=== PATIENT | male | born 1945 | race Caucasian/White ===

== ENCOUNTER → 2016-08-21 | Outpatient (REF) | payer MEDICARE ==
[2016-08-21 12:09] LABS: MEAN CORPUSCULAR HEMOGLOBIN 30.4 pg (27.0-33.0); MEAN CORPUSCULAR HGB CONC 34.5 g/dl (32.0-36.5); MEAN CORPUSCULAR VOLUME 88.1 fl (80.0-96.0); RED CELL DISTRIBUTION WIDTH 12.6 % (11.5-14.5); WHITE BLOOD COUNT 8.4 K/mm3 (4.0-10.0)
[2016-08-21 12:35] LABS: ALBUMIN 3.9 GM/DL (3.2-5.2); ALKALINE PHOSPHATASE 50 U/L (45-117); ALT/SGPT 28 U/L (12-78); ANION GAP 9 MEQ/L (8-16); AST/SGOT 21 U/L (15-37); BILIRUBIN,TOTAL 0.4 MG/DL (0.2-1.0); BLOOD UREA NITROGEN 20 MG/DL (7-18); CALCIUM LEVEL 9.1 MG/DL (8.8-10.2); CARBON DIOXIDE LEVEL 26 MEQ/L (21-32); CHLORIDE LEVEL 105 MEQ/L (98-107); CHOLESTEROL LEVEL 128 MG/DL (<200); CREATININE FOR GFR 1.18 MG/DL (0.70-1.30); GLOMERULAR FILTRATION RATE > 60.0 (>42); GLUCOSE, FASTING 94 MG/DL (83-110); POTASSIUM SERUM 3.9 MEQ/L (3.5-5.1); SODIUM LEVEL 140 MEQ/L (136-145); TOTAL PROTEIN 6.9 GM/DL (6.4-8.2); TRIGLYCERIDES LEVEL 190 MG/DL (<150)
== END ==
LOC: M SFHCPLAZ 08:01
PROVIDERS: ATTEND Internal Medicine
DX: Z86.010 Personal history of colon polyps (principal); E11.9 Type 2 diabetes mellitus without complications; I25.10 Atherosclerotic heart disease of native coronary artery without angina pectoris; I73.9 Peripheral vascular disease, unspecified

== ENCOUNTER → 2017-02-26 | Outpatient (REF) | payer MEDICARE ==
[2017-02-26 12:03] LABS: ESTIMATED AVERAGE GLUCOSE 192 MG/DL (60-110)
[2017-02-26 12:05] LABS: ALBUMIN 3.7 GM/DL (3.2-5.2); ALBUMIN/GLOBULIN RATIO 1.23 (1.00-1.93); ALKALINE PHOSPHATASE 53 U/L (45-117); ALT/SGPT 20 U/L (12-78); ANION GAP 9 MEQ/L (8-16); AST/SGOT 14 U/L (7-37); BILIRUBIN,TOTAL 0.4 MG/DL (0.2-1.0); BLOOD UREA NITROGEN 21 MG/DL (7-18); CALCIUM LEVEL 8.6 MG/DL (8.8-10.2); CARBON DIOXIDE LEVEL 28 MEQ/L (21-32); CHLORIDE LEVEL 102 MEQ/L (98-107); CHOLESTEROL LEVEL 131 MG/DL (<200); CREATININE FOR GFR 1.24 MG/DL (0.70-1.30); GLOMERULAR FILTRATION RATE > 60.0 (>42); GLUCOSE, FASTING 213 MG/DL (83-110); MAGNESIUM LEVEL 2.2 MG/DL (1.8-2.4); SODIUM LEVEL 139 MEQ/L (136-145); TOTAL PROTEIN 6.7 GM/DL (6.4-8.2); TRIGLYCERIDES LEVEL 259 MG/DL (<150)
== END ==
LOC: M SFHCPLAZ 08:02
DX: E11.9 Type 2 diabetes mellitus without complications (principal); I25.10 Atherosclerotic heart disease of native coronary artery without angina pectoris; I10 Essential (primary) hypertension
CPT/HCPCS: 83735

== ENCOUNTER → 2017-09-20 | Outpatient (REF) | payer BC, MEDICARE ==
[2017-09-20 11:30] LABS: HEMATOCRIT 39.6 % (42.0-52.0); MEAN CORPUSCULAR HEMOGLOBIN 29.3 pg (27.0-33.0); MEAN CORPUSCULAR HGB CONC 32.8 g/dl (32.0-36.5); MEAN CORPUSCULAR VOLUME 89.4 fl (80.0-96.0); PLATELET COUNT, AUTOMATED 226 10^3/uL (150-450); RED BLOOD COUNT 4.43 10^6/uL (4.30-6.10); RED CELL DISTRIBUTION WIDTH 12.6 % (11.5-14.5); WHITE BLOOD COUNT 9.1 10^3/uL (4.0-10.0)
[2017-09-20 11:52] LABS: ALBUMIN 3.5 GM/DL (3.2-5.2); ALBUMIN/GLOBULIN RATIO 1.17 (1.00-1.93); ALKALINE PHOSPHATASE 49 U/L (45-117); ALT/SGPT 21 U/L (12-78); ANION GAP 8 MEQ/L (8-16); AST/SGOT 15 U/L (7-37); BILIRUBIN,TOTAL 0.4 MG/DL (0.2-1.0); BLOOD UREA NITROGEN 20 MG/DL (7-18); CALCIUM LEVEL 8.6 MG/DL (8.8-10.2); CARBON DIOXIDE LEVEL 27 MEQ/L (21-32); CHLORIDE LEVEL 107 MEQ/L (98-107); CHOLESTEROL LEVEL 102 MG/DL (<200); CHOLESTEROL RISK RATIO 3.187 (<5); CREATININE FOR GFR 1.23 MG/DL (0.70-1.30); GLOMERULAR FILTRATION RATE > 60.0 (>42); GLUCOSE, FASTING 157 MG/DL (70-100); HDL CHOLESTEROL 32 MG/DL (>40); MAGNESIUM LEVEL 1.9 MG/DL (1.8-2.4); NON-HDL-C 70 MG/DL; POTASSIUM SERUM 4.2 MEQ/L (3.5-5.1); SODIUM LEVEL 142 MEQ/L (136-145); TOTAL PROTEIN 6.5 GM/DL (6.4-8.2); TRIGLYCERIDES LEVEL 130 MG/DL (<150)
[2017-09-20 12:12] LABS: MALB URINE SIEMENS 83.9 MG/L; MAU/CREAT RATIO 68.7 MCG/MG (0.0-30.0)
[2017-09-20 14:39] LABS: ESTIMATED AVERAGE GLUCOSE 212 MG/DL (60-110)
== END ==
LOC: M SFHCPLAZ 09:01
DX: G57.91 Unspecified mononeuropathy of right lower limb (principal); Z86.010 Personal history of colon polyps; E11.51 Type 2 diabetes mellitus with diabetic peripheral angiopathy without gangrene; I73.9 Peripheral vascular disease, unspecified; I10 Essential (primary) hypertension
CPT/HCPCS: 83735

== ENCOUNTER → 2018-02-24 | Outpatient (REF) | payer MEDICARE ==
[2018-02-24 11:33] LABS: ALBUMIN 3.6 GM/DL (3.2-5.2); ALT/SGPT 19 U/L (12-78); BILIRUBIN,TOTAL 0.3 MG/DL (0.2-1.0); BLOOD UREA NITROGEN 28 MG/DL (7-18); CALCIUM LEVEL 8.6 MG/DL (8.8-10.2); CARBON DIOXIDE LEVEL 26 MEQ/L (21-32); CHLORIDE LEVEL 105 MEQ/L (98-107); CREATININE FOR GFR 1.22 MG/DL (0.70-1.30); GLOMERULAR FILTRATION RATE > 60.0 (>42); GLUCOSE, FASTING 233 MG/DL (70-100); MAGNESIUM LEVEL 1.9 MG/DL (1.8-2.4); POTASSIUM SERUM 4.4 MEQ/L (3.5-5.1); SODIUM LEVEL 138 MEQ/L (136-145); TOTAL PROTEIN 6.8 GM/DL (6.4-8.2)
[2018-02-24 11:42] LABS: CREATININE, URINE 72.4 MG/DL; MALB URINE SIEMENS 42.1 MG/L; MAU/CREAT RATIO 58.1 MCG/MG (0.0-30.0)
[2018-02-24 12:07] LABS: HEMOGLOBIN A1c 9.1 %
== END ==
LOC: M SFHCPLAZ 08:18
PROVIDERS: ATTEND Internal Medicine
DX: I10 Essential (primary) hypertension (principal); E11.51 Type 2 diabetes mellitus with diabetic peripheral angiopathy without gangrene

== ENCOUNTER → 2018-07-28 | Outpatient (REF) | payer MEDICARE ==
[2018-07-28 10:22] LABS: HEMATOCRIT 41.9 % (42.0-52.0); HEMOGLOBIN 13.8 g/dl (13.5-17.5); MEAN CORPUSCULAR HEMOGLOBIN 29.9 pg (27.0-33.0); MEAN CORPUSCULAR HGB CONC 32.9 g/dl (32.0-36.5); MEAN CORPUSCULAR VOLUME 90.9 fl (80.0-96.0); PLATELET COUNT, AUTOMATED 223 10^3/uL (150-450); RED BLOOD COUNT 4.61 10^6/uL (4.30-6.10); WHITE BLOOD COUNT 8.9 10^3/uL (4.0-10.0)
[2018-07-28 10:30] LABS: ALBUMIN 3.9 GM/DL (3.2-5.2); BILIRUBIN,TOTAL 0.8 MG/DL (0.2-1.0); CALCIUM LEVEL 9.3 MG/DL (8.8-10.2); CHOLESTEROL RISK RATIO 2.842 (<5); CREATININE FOR GFR 1.31 MG/DL (0.70-1.30); GLOMERULAR FILTRATION RATE 57.1 (>42); POTASSIUM SERUM 4.5 MEQ/L (3.5-5.1); TOTAL PROTEIN 6.5 GM/DL (6.4-8.2)
[2018-07-28 10:40] LABS: HEMOGLOBIN A1c 7.8 %
[2018-07-28 11:04] LABS: CREATININE, URINE 82.3 MG/DL; MALB URINE SIEMENS 14.2 MG/L; MAU/CREAT RATIO 17.2 MCG/MG (0.0-30.0)
== END ==
LOC: M SFHCPLAZ 08:05
PROVIDERS: ATTEND Internal Medicine
DX: G57.91 Unspecified mononeuropathy of right lower limb (principal); I10 Essential (primary) hypertension; E11.51 Type 2 diabetes mellitus with diabetic peripheral angiopathy without gangrene; I25.10 Atherosclerotic heart disease of native coronary artery without angina pectoris

== ENCOUNTER → 2018-08-22 | Outpatient (CLI) | payer MEDICARE ==
--- NOTE | 2018-08-22 12:22 | REP ---
Clinical: Dyspnea. Technique: PA and lateral. Comparison: 11/04/2007. Findings: Cardiomegaly is appreciated along with subtle bibasilar infiltrates and small pleural effusions. Mild pulmonary vascular prominence and cephalization is also appreciated and findings suggest early pulmonary vascular congestion. No pneumothorax. Evidence of prior sternotomy and CABG. Skeletal structures intact. Impression: Subtle bibasilar atelectasis and small pleural effusions. Differential diagnosis includes early/mild pulmonary vascular congestion with interstitial edema. Electronically Signed by Bryan Chambers MD 08/22/2018 12:13 P
== END ==
LOC: M SMT 12:03
PROVIDERS: ATTEND Family Medicine
DX: J98.11 Atelectasis (principal); J90 Pleural effusion, not elsewhere classified; R60.0 Localized edema

== ENCOUNTER → 2018-08-22 | Outpatient (REF) | payer MEDICARE ==
[2018-08-22 14:21] LABS: CALCIUM LEVEL 8.8 MG/DL (8.8-10.2); CREATININE FOR GFR 1.44 MG/DL (0.70-1.30); GLOMERULAR FILTRATION RATE 51.2 (>42); POTASSIUM SERUM 3.9 MEQ/L (3.5-5.1)
== END ==
LOC: M SFHCPLAZ 11:45
PROVIDERS: ATTEND Family Medicine
DX: R60.0 Localized edema (principal)

== ENCOUNTER → 2018-09-09 | Outpatient (CLI) | payer MEDICARE ==
[~2018-09-09] MED LIST: AMLO5TAB6 PO; ASPI81TA85 PO; BYDU1INJ SC; CHLO125TA PO; ELIQ5TAB PO; EQ I1CAP PO; GLYB5TA PO; LISI40TA PO; METF-877 PO; METO50TA7 PO; SIMV40TA2 PO; TORS20TA2 PO; ZOCO80TA PO; [UNRECOGNIZED DRUG - OTHER]
[2018-09-09 17:21] LABS: HEMATOCRIT 41.8 % (42.0-52.0); MEAN CORPUSCULAR HEMOGLOBIN 28.8 pg (27.0-33.0); MEAN CORPUSCULAR HGB CONC 31.1 g/dl (32.0-36.5); MEAN CORPUSCULAR VOLUME 92.7 fl (80.0-96.0); PLATELET COUNT, AUTOMATED 209 10^3/uL (150-450); RED BLOOD COUNT 4.51 10^6/uL (4.30-6.10); WHITE BLOOD COUNT 9.8 10^3/uL (4.0-10.0)
[2018-09-09 17:34] LABS: CALCIUM LEVEL 8.5 MG/DL (8.8-10.2); CREATININE FOR GFR 1.43 MG/DL (0.70-1.30); GLOMERULAR FILTRATION RATE 51.6 (>42); MAGNESIUM LEVEL 2.2 MG/DL (1.8-2.4); POTASSIUM SERUM 3.6 MEQ/L (3.5-5.1); THYROID STIMULATING HORMONE 2.13 uIU/ML (0.358-3.740)
== END ==
LOC: M SMT 10:58
PROVIDERS: ATTEND Physician Assistant
DX: I50.41 Acute combined systolic (congestive) and diastolic (congestive) heart failure (principal); I48.91 Unspecified atrial fibrillation

== ENCOUNTER 2018-09-19 11:38 | Inpatient (IN) | payer MEDICARE ==
[~2018-09-19] VITALS: Ht 177.8 cm; Wt 111.2 kg
[2018-09-19] MEDS ORDERED: FUROSEMIDE 40 MG/4 ML VIAL (J1940) IV ONE (13:00)
--- NOTE | 2018-09-19 13:46 | REP ---
Bilateral lower extremity Duplex Doppler venous ultrasound: Real time compression and duplex Doppler interrogation of the bilateral lower extremity deep venous system is performed. Bilaterally, the common femoral, superficial femoral and popliteal veins are fully compressible with transducer pressure and demonstrate normal spontaneous and phasic flow, without evidence of deep venous thrombosis. Impression: No evidence of deep venous thrombosis of the bilateral lower extremity femoral popliteal venous system. Electronically Signed by Juno Hartley MD 09/19/2018 01:38 P
[2018-09-19] MEDS ORDERED: METF-877 PO (14:00)
[2018-09-19] MEDS ORDERED: GLYB5TA PO (14:01)
[2018-09-19] MEDS ORDERED: METO50TA7 PO (14:02)
[2018-09-19] MEDS ORDERED: CHLO125TA PO (14:03)
[2018-09-19] MEDS ORDERED: SIMV40TA2 PO (14:03)
[2018-09-19] MEDS ORDERED: LISI40TA PO (14:04)
[2018-09-19] MEDS ORDERED: AMLO5TAB6 PO (14:05)
[2018-09-19] MEDS ORDERED: ASPI81TA85 PO (14:05)
[2018-09-19] MEDS ORDERED: ELIQ5TAB PO (14:06)
[2018-09-19] MEDS ORDERED: [UNRECOGNIZED DRUG - OTHER] (14:07)
[2018-09-19] MEDS ORDERED: TORS20TA2 PO (14:08)
[2018-09-19 14:40] LABS: ALBUMIN 3.6 GM/DL (3.2-5.2); BILIRUBIN,DIRECT 0.2 MG/DL (0.0-0.2); BILIRUBIN,TOTAL 0.5 MG/DL (0.2-1.0); CALCIUM LEVEL 8.6 MG/DL (8.8-10.2); CK-MB VALUE MASS 1.7 NG/ML (<3.6); CREATININE FOR GFR 1.58 MG/DL (0.70-1.30); MB/CK RELATIVE INDEX 3.86 (< OR =4); POTASSIUM SERUM 4.3 MEQ/L (3.5-5.1); TOTAL PROTEIN 6.6 GM/DL (6.4-8.2); TROPONIN I 0.37 NG/ML (< 0.10)
[2018-09-19 15:14] LABS: BASO # 0.1 10^3/uL (0.0-0.2); BASO % 0.6 % (0.0-1.0); EOS # 0.2 10^3/uL (0.0-0.50); EOS % 1.7 % (0.0-3.0); HEMOGLOBIN 12.2 g/dl (13.5-17.5); LYMPH # 2.2 10^3/uL (1.5-4.5); LYMPH % 25.2 % (24.0-44.0); MEAN CORPUSCULAR HEMOGLOBIN 28.7 pg (27.0-33.0); MEAN CORPUSCULAR HGB CONC 32.1 g/dl (32.0-36.5); MEAN CORPUSCULAR VOLUME 89.4 fl (80.0-96.0); MONO # 0.5 10^3/uL (0.0-0.8); MONO % 5.8 % (0.0-5.0); NEUTROPHILS # 5.9 10^3/uL (1.8-7.7); NEUTROPHILS % 66.5 % (36.0-66.0); PLATELET COUNT, AUTOMATED 201 10^3/uL (150-450); RED BLOOD COUNT 4.25 10^6/uL (4.30-6.10); WHITE BLOOD COUNT 8.9 10^3/uL (4.0-10.0)
--- NOTE | 2018-09-19 15:19 | REP ---
CHEST, TWO VIEWS: Two views of the chest are performed. COMPARISON: 08/22/2018 There is cardiomegaly again noted as well as vascular congestion. There are bibasilar infiltrates and effusions, right greater than left. The right-sided effusion has mildly increased since the prior study. There is calcification of the thoracic aorta. The mediastinal silhouette is unchanged. Multiple sternal wires are present as well as mediastinal clips. There are degenerative changes of the spine. IMPRESSION: Cardiomegaly, vascular congestion with bibasilar infiltrates and effusions. Findings are most consistent with CHF and pulmonary edema. Electronically Signed by Juno Hartley MD 09/20/2018 04:13 P
[2018-09-19] MEDS ORDERED: EQ I1CAP PO (16:22)
[2018-09-19] MEDS ORDERED: BYDU1INJ SC (16:22)
[2018-09-19] MEDS ORDERED: ZOCO80TA PO (16:22)
[2018-09-19] MEDS ORDERED: ISOSORBIDE DIN (ISORDIL) 10 MG TAB PO SCH (17:00)
[2018-09-19] MEDS ORDERED: DEXTROSE 50% 50 ML SYRINGE IV PRN (17:15)
[2018-09-19] MEDS ORDERED: GLUCAGON FOR INJ 1 MG VIAL (J1610) SC PRN (17:15)
[2018-09-19] MEDS ORDERED: GLUCOSE 4 GM CHEW TABLET PO PRN (17:15)
[2018-09-19] MEDS: HumaLOG INSULIN (NovoLOG) PER UNIT SC SCH ×2 (17:30→21:14)
--- NOTE | 2018-09-19 17:51 | HPE ---
DATE OF ADMISSION: 09/19/2018 PRIMARY CARE PROVIDER: Dr. Eliud Simmons MACADAM RAKER: Dr. Jarrett Lee HISTORY: Ramya Cadena was admitted to the hospitalist service with congestive heart failure with reduced ejection fraction. He has been having increasing problems with edema of the lower extremities, dyspnea on exertion, and orthopnea since . This has been addressed by changing diuretics from hydrochlorothiazide to furosemide to torsemide at escalating doses but no significant improvement. He had an echocardiogram in 2016, ejection fraction of 50%. He had a repeat echocardiogram with cardiac associates five days ago on 09/14/2018 and that shows an ejection fraction of only 30% with a recommendation to discontinue lisinopril and start Entresto after washout. Echocardiogram showed severe left atrial enlargement, 59 mm, has mixed eccentric concentric left ventricular hypertrophy, severe hypokinesis of the basal and mid inferior inferolateral segments with mild hypokinesis elsewhere. No left ventricular (LV) thrombus. Moderate elevation of the right-sided systolic pressures with dilated right ventricle and mild reduction of LV systolic function, mild mitral regurgitation noted. He has a past history of coronary artery bypass grafting November 2001. He has peripheral artery disease, femoral/popliteal bypass on the right June 2015, right common femoral artery popliteal endarterectomy, right femoral to popliteal artery bypass. He had previously undergone right common femoral and right superficial femoral endarterectomy in 2013. He had external iliac to superficial femoral artery bypass with graft November 2012, right popliteal to tibioperoneal trunk endarterectomy June 2009. He was seeing Dr. Mercado at [facility] for quite awhile, most recently saw Dr. Adams there. The patient's other past medical history shows type 2 diabetes, hemoglobin A1c the last year have been 9.1 to 7.8 (June 2018), hypertensive heart disease, neuropathy of the right lower extremity, history of adenomatous colon polyp. PAST SURGICAL HISTORY: Deviated septum repair, various vascular procedures as summarized above, arthroscopy left knee December 1981, cataract extractions. FAMILY HISTORY: Father of myocardial infarction ([place]) and alcoholism in his 40s. Mother had cancer in her 70s. SOCIAL HISTORY: He quit smoking over 10 years ago. Alcohol intake is moderate. 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 He is . He likes to golf, usually at [employer]. MEDICATIONS: - amlodipine 10 mg daily - Eliquis 5 mg twice a day - aspirin 81 mg daily - chlorthalidone 12.5 mg daily - lisinopril 40 mg daily - metformin 1000 mg twice a day - metoprolol tartrate 50 mg twice a day - simvastatin half an 80 mg tablet (40 mg) daily - torsemide 50 mg daily - Bydureon 2 mg daily - glyburide 10 mg twice a day - ibuprofen as needed ALLERGIES: None known. REVIEW OF SYSTEMS: No exertional chest pain, palpitations, epistaxis, rectal bleeding, urinary bleeding. PHYSICAL EXAMINATION: Blood pressure 152/80, pulse 89, respiratory rate 18, 97% oxygen saturation. GENERAL APPEARANCE: He is lying in bed, sitting at an incline, in no distress. Pupils are equal and react to light. Tympanic membranes (TMs) and oropharynx benign. NECK: No masses. No jugular venous distention (JVD). LUNGS: Rales at both bases. Decreased breath sounds at the bases. HEART: Irregular rate and rhythm, 1/6 holosystolic murmur at the apex. ABDOMEN: Soft, nontender. No masses. He has 1 to 2+ peripheral edema. LABORATORY DATA: White count 8.9, hemoglobin 12.2, platelets 201. Sodium 143, potassium 4.3, BUN 33, creatinine 1.6, glucose 188. BNP is 4600. Chest x-ray showed bilateral small pleural effusions. Ultrasound of his legs was negative for DVT. IMPRESSION: 1. Congestive heart failure with reduced ejection fraction. He has had a significant reduction in ejection fraction from 2017 to his recent echocardiogram last week. He has resisted improving with escalating doses of diuretics. While certainly some of his peripheral edema is from the high dose of amlodipine (10 mg daily), he does have systemic volume overload on examination. The patient will be admitted to the progressive care unit (PCU) bed. IV Lasix ordered to maintain a net diuresis of 1.5 liters per day. Cardiology consulted. Case discussed with Dr. Ryan. He plans to begin Entresto. Daily laboratories have been ordered. A two-gram sodium diet with 1500 mL per day fluid restriction ordered. 2. Atrial fibrillation. I reviewed his office note from 09/09/2018 in cardiac associates. At that time, he showed up with atrial fibrillation which was new onset and asymptomatic. He has previously been in sinus rhythm. At that visit, it looks like they discussed rate control versus rhythm control and began Eliquis 5 mg twice daily. He was started on Eliquis 5 mg twice a day. Etiology is unknown. It should be noted he had a nuclear stress test done July 2016 and ejection fraction then was 49%. He had started having a mildly dilated left ventricular and no reversible abnormality to suggest a stress-induced ischemia. He was showing decreased ejection fraction at that time compared to ejection fraction (EF) from nuclear study from 07/26/2014. 3. Hypertension. Stop the lisinopril and let it washout. Cardiology's plan is to start Entresto. 4. Diabetes. Hold the metformin in the face of the decompensated heart failure. Hold Bydureon for now. Sliding scale with insulin coverage started. Restart glyburide based on diabetic control in the hospital. 5. Peripheral arterial disease. He was taken off Plavix at the cardiology associates appointment last week. He is on aspirin 81 mg daily and Eliquis. Continue with statin therapy. 6. Hyperlipidemia. Continue with statin therapy. He is on 40 mg of simvastatin and a fairly high dose of amlodipine. It might be prudent to switch him to a different statin such as atorvastatin, less likely to have a drug interaction with the amlodipine. 7. Lower extremity edema. Certainly some of this is from congestive heart failure but I also think that the amlodipine is contributing. The dose has been reduced to 5 mg daily. 8. Chronic kidney disease, stage III. Baseline glomerular filtration rate (GFR) is around 50. Watch this closely on the Entresto. Case discussed with Dr. Ryan who will see the patient in consultation. The patient will be on the hospitalist service.
[2018-09-19] MEDS: FUROSEMIDE 100 MG/10 ML VIAL (J1940) IV SCH (18:54)
[2018-09-19] MEDS ORDERED: ISOSORBIDE DIN (ISORDIL) 10 MG TAB PO ONE (20:00)
--- NOTE | 2018-09-19 20:05 | ECGEPIP ---
[facility] - ED Test Date: 2018-09-19 Pat Name: LENNOX GARRETT Department: Room: - Gender: Male [employer]: : 1945 Requested By: Job Musa Order Number: [id number] Reading MD: Anselmo Washington Measurements Intervals Wilber Rate: 87 P: MD: -1 QRS: 128 QRSD: 105 T: 117 QT: 391 QTc: 472 Interpretive Statements ATRIAL FIBRILLATION LOW QRS VOLTAGE IN EXTREMITY LEADS LEFT POSTERIOR FASCICULAR BLOCK NO PRIORS FOR COMPARISON Electronically Signed on 09-19-2018 20:05:29 EDT by Anselmo Washington
[2018-09-19] MEDS ORDERED: METOPROLOL TART 50 MG TAB PO SCH (21:00)
[2018-09-19] MEDS ORDERED: amLODIPine 5 MG TAB PO SCH (21:00)
[2018-09-19] MEDS: **hydrALAZINE** 10 MG TAB PO SCH (21:12)
[2018-09-19] MEDS: APIXABAN 5 MG TAB (ELIQUIS) PO SCH (21:12)
[2018-09-19] MEDS: METOPROLOL SUCC (TopROL XL) 50MG **XL** TAB PO SCH (21:13)
[2018-09-19] MEDS: ATORVASTATIN 20 MG TAB PO SCH (21:13)
[2018-09-19 23:40] LABS: CK-MB VALUE MASS < 1.0 NG/ML (<3.6); CPK CREATINE PHOSPHOKINASE 44 U/L (39-308); MB/CK RELATIVE INDEX 2.27 (< OR =4); TROPONIN I 0.38 NG/ML (< 0.10)
[2018-09-20 04:43] VITALS: BP 121/59
[2018-09-20 04:47] VITALS: BP 121/59
[2018-09-20] MEDS: FUROSEMIDE 100 MG/10 ML VIAL (J1940) IV SCH ×5 (06:00→23:51)
[2018-09-20] MEDS: ISOSORBIDE DIN (ISORDIL) 10 MG TAB PO SCH ×3 (06:19→16:38)
[2018-09-20 06:32] LABS: HEMATOCRIT 38.3 % (42.0-52.0); HEMOGLOBIN 12.6 g/dl (13.5-17.5); MEAN CORPUSCULAR HEMOGLOBIN 29.6 pg (27.0-33.0); MEAN CORPUSCULAR HGB CONC 32.9 g/dl (32.0-36.5); MEAN CORPUSCULAR VOLUME 90.1 fl (80.0-96.0); PLATELET COUNT, AUTOMATED 201 10^3/uL (150-450); RED BLOOD COUNT 4.25 10^6/uL (4.30-6.10); WHITE BLOOD COUNT 9.5 10^3/uL (4.0-10.0)
[2018-09-20 06:52] LABS: CALCIUM LEVEL 8.7 MG/DL (8.8-10.2); CREATININE FOR GFR 1.49 MG/DL (0.70-1.30); GLOMERULAR FILTRATION RATE 49.2 (>42); POTASSIUM SERUM 3.9 MEQ/L (3.5-5.1)
[2018-09-20 06:56] LABS: CK-MB VALUE MASS < 1.0 NG/ML (<3.6); CPK CREATINE PHOSPHOKINASE 45 U/L (39-308); MB/CK RELATIVE INDEX 2.22 (< OR =4); TROPONIN I 0.36 NG/ML (< 0.10)
[2018-09-20] MEDS: APIXABAN 5 MG TAB (ELIQUIS) PO SCH ×2 (08:20→20:12)
[2018-09-20] MEDS: HumaLOG INSULIN (NovoLOG) PER UNIT SC SCH ×4 (08:20→21:00)
[2018-09-20] MEDS: ASPIRIN 81 MG ENTERIC TAB PO SCH (08:20)
[2018-09-20] MEDS: **hydrALAZINE** 10 MG TAB PO SCH ×4 (08:21→20:12)
[2018-09-20] MEDS: ENTRESTO 49-51MG TABLET (SACUBITRIL/VALSARTAN) PO SCH ×2 (08:21→20:12)
[2018-09-20] MEDS: METOPROLOL SUCC (TopROL XL) 50MG **XL** TAB PO SCH ×2 (08:21→20:13)
[2018-09-20 14:25] VITALS: BP 142/77
[2018-09-20] MEDS ORDERED: SLF 3 ML SYR IV PRN (15:00)
[2018-09-20 16:00] VITALS: BP 138/84
--- NOTE | 2018-09-20 17:03 | IPNPDOC ---
Subjective Date Seen The patient was seen on 09/20/18. Subjective Chief Complaint/HPI Follow-up CHF exacerbation Events since last encounter Patient seen and examined at bedside. Patient says he's feeling better. Lower extremity swelling improved as well as breathing improved. Patient denies fevers, chills, chest pain, difficulty breathing, nausea, vomiting, diarrhea, leg pain. Objective Physical Examination General Exam: Positive: Alert, Cooperative, No Acute Distress Chest Exam: Positive: Rales Heart Exam: Positive: Rate Normal, Irregular Rhythm Telemetry: Positive: Atrial fibrillation Abdomen Exam: Positive: Normal bowel sounds, Soft; Negative: Tenderness Extremity Exam: Positive: Edema (2+ bilateral lower extremities) Skin Exam: Positive: Nl turgor and temperature; Negative: Rash, Breakdown Psych Exam: Positive: Mental status NL, Mood NL, Oriented x 3 Assessment /Plan Assessment Patient is a 73-year-old male with diabetes, heart failure reduced ejection fraction, atrial fibrillation who presents for CHF exacerbation Plan/VTE VTE Prophylaxis Ordered?: Yes Plan #Congestive heart failure with reduced ejection fraction. -He has had a significant reduction in ejection fraction from 2017 to his recent echocardiogram last week. -cont. IV Lasix ordered to maintain a net diuresis of 1.5 liters per day. -appreciate Cardiology consult -cont. Entresto. -Daily laboratories have been ordered. -A two-gram sodium diet with 1500 mL per day fluid restriction ordered. #Atrial fibrillation. -cont. Eliquis 5 mg twice a day. -cont. rate control #Hypertension. -cont. to hold lisinopril and let it washout. -cont. Entresto. #Diabetes. -Hold the metformin in the face of the decompensated heart failure. -Hold Bydureon for now. -Sliding scale with insulin coverage - will consider restarting glyburide based on diabetic control in the hospital. #Peripheral arterial disease. -Pt was taken off Plavix at the cardiology associates appointment last week. -cont. aspirin 81 mg daily and Eliquis. -Continue with statin therapy. #Hyperlipidemia. -Continue with atorvastatin 40mg #Lower extremity edema. -possible contribution from amlodipine 10mg - continue reduced dose at 5 mg amlodipine daily. 8. Chronic kidney disease, stage III. -Baseline glomerular filtration rate (GFR) is around 50 -will monitor this closely on the Entresto. Disposition Home pending improvement in volume overload state VS, I&O, [facility] Signs/I&O Vital Signs Date Time Temp Pulse Resp B/P (MAP) Pulse Ox O2 Delivery O2 Flow Rate FiO2 09/20/18 16:38 138/84 09/20/18 16:00 97.8 89 20 96 09/20/18 04:00 Room Air I&O- Last 24 Hours up to 6 AM 09/20/18 06:00 Intake Total 964 ml Output Total 4125 ml Balance -3161 ml Laboratory Data 24H LABS Laboratory Tests 2 09/19/18 18:38: Bedside Glucose (Misc Panel) 164H 09/19/18 20:56: Bedside Glucose (Misc Panel) 232H 09/19/18 23:05: Total Creatine Kinase 44, Creatine Kinase MB < 1.0, Creatine Kinase MB Relative Index 2.27, Troponin I 0.38H 09/20/18 06:18: Total Creatine Kinase 45, Creatine Kinase MB < 1.0, Creatine Kinase MB Relative Index 2.22, Troponin I 0.36H, Nucleated Red Blood Cells % (auto) 0.0, Anion Gap 5L, Glomerular Filtration Rate 49.2, Blood Urea Nitrogen 30H, Creatinine 1.49H, Sodium Level 143, Potassium Level 3.9, Chloride Level 105, Carbon Dioxide Level 33H, Calcium Level 8.7L, Magnesium Level 2.0 09/20/18 11:55: Bedside Glucose (Misc Panel) 241H CBC/BMP Laboratory Tests 09/20/18 06:18 Red Blood Count 4.25 L, Mean Corpuscular Volume 90.1, Mean Corpuscular Hemoglobin 29.6, Mean Corpuscular Hemoglobin Concent 32.9, Red Cell Distribution Width 13.1, Calcium Level 8.7 L ROSALES MAY MD Sep 20, 2018 17:03
[2018-09-20 17:31] LABS: CK-MB VALUE MASS < 1.0 NG/ML (<3.6); CPK CREATINE PHOSPHOKINASE 51 U/L (39-308); MB/CK RELATIVE INDEX 1.96 (< OR =4); TROPONIN I 0.34 NG/ML (< 0.10)
[2018-09-20] MEDS: ATORVASTATIN 20 MG TAB PO SCH (20:12)
[2018-09-20] MEDS: SLF 3 ML SYR IV SCH (20:13)
[2018-09-20 23:59] VITALS: BP 179/79
[2018-09-21 04:00] VITALS: BP 130/75
[2018-09-21 06:09] LABS: HEMATOCRIT 38.8 % (42.0-52.0); HEMOGLOBIN 12.7 g/dl (13.5-17.5); MEAN CORPUSCULAR HEMOGLOBIN 28.5 pg (27.0-33.0); MEAN CORPUSCULAR HGB CONC 32.7 g/dl (32.0-36.5); MEAN CORPUSCULAR VOLUME 87.2 fl (80.0-96.0); PLATELET COUNT, AUTOMATED 209 10^3/uL (150-450); RED BLOOD COUNT 4.45 10^6/uL (4.30-6.10); WHITE BLOOD COUNT 10.6 10^3/uL (4.0-10.0)
[2018-09-21] MEDS: ISOSORBIDE DIN (ISORDIL) 10 MG TAB PO SCH ×2 (06:09→12:33)
[2018-09-21] MEDS: FUROSEMIDE 100 MG/10 ML VIAL (J1940) IV SCH ×2 (06:09→12:34)
[2018-09-21] MEDS: SLF 3 ML SYR IV SCH ×3 (06:09→20:05)
[2018-09-21 06:37] LABS: CALCIUM LEVEL 8.4 MG/DL (8.8-10.2); CREATININE FOR GFR 1.34 MG/DL (0.70-1.30); GLOMERULAR FILTRATION RATE 55.6 (>42); MAGNESIUM LEVEL 2.1 MG/DL (1.8-2.4); POTASSIUM SERUM 3.4 MEQ/L (3.5-5.1)
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
[2018-09-21 08:00] VITALS: BP 124/80
[2018-09-21] MEDS ORDERED: POTASSIUM CHLORIDE 10 MEQ SR TABLET PO ONE (08:45)
[2018-09-21] MEDS: HumaLOG INSULIN (NovoLOG) PER UNIT SC SCH ×4 (09:16→20:52)
[2018-09-21] MEDS: ENTRESTO 49-51MG TABLET (SACUBITRIL/VALSARTAN) PO SCH ×2 (09:17→20:04)
[2018-09-21] MEDS: METOPROLOL SUCC (TopROL XL) 50MG **XL** TAB PO SCH (09:17)
[2018-09-21] MEDS: **hydrALAZINE** 10 MG TAB PO SCH ×2 (09:17→12:32)
[2018-09-21] MEDS: APIXABAN 5 MG TAB (ELIQUIS) PO SCH ×2 (09:17→20:04)
[2018-09-21] MEDS: ASPIRIN 81 MG ENTERIC TAB PO SCH (09:17)
[2018-09-21 12:00] VITALS: BP 128/76
--- NOTE | 2018-09-21 14:04 | IPNPDOC ---
Subjective Date Seen The patient was seen on 09/21/18. Subjective Chief Complaint/HPI Follow-up CHF exacerbation Events since last encounter Patient seen and examined at bedside. Patient feeling well today. Breathing improved and lower swelling improved. Family at bedside. Patient denies fevers, chills, chest pain, difficulty breathing, nausea, vomiting, diarrhea, leg pain. Objective Physical Examination General Exam: Positive: Alert, Cooperative, No Acute Distress ENT Exam: Positive: Atraumatic Chest Exam: Positive: Rales (scant rales in left lower lung field) Heart Exam: Positive: Rate Normal, Irregular Rhythm Telemetry: Positive: Atrial fibrillation Abdomen Exam: Positive: Normal bowel sounds, Soft; Negative: Tenderness Extremity Exam: Positive: Edema (1+ pitting edema to bilateral lower extremities) Skin Exam: Positive: Nl turgor and temperature; Negative: Rash, Breakdown Psych Exam: Positive: Mental status NL, Mood NL, Oriented x 3 Assessment /Plan Assessment Patient is a 73-year-old male with acute on chronic CHF exacerbation Plan/VTE VTE Prophylaxis Ordered?: Yes Plan #Congestive heart failure with reduced ejection fraction. -He has had a significant reduction in ejection fraction from 2017 to his recent echocardiogram last week. -cont. IV Lasix ordered to maintain a net diuresis of 1.5 liters per day. -appreciate Cardiology consult -cont. Entresto. -cont. isosorbide dinitrate with hydralazine -Daily laboratories have been ordered. -switch to metoprolol succinate 50mg BID -A two-gram sodium diet with 1500 mL per day fluid restriction ordered. -will speak with cardiology as pt likely candidate for lifevest as well #Atrial fibrillation. -cont. Eliquis 5 mg twice a day. -cont. rate control with metoprolol #Hypertension. -cont. to hold lisinopril and let it washout. -cont. Entresto. -cont. isosorbide dinitrate and hydral #Diabetes. -Hold the metformin in the face of the decompensated heart failure. -Hold Bydureon for now. -Sliding scale with insulin coverage - will consider restarting glyburide based on diabetic control in the hospital. #Peripheral arterial disease. -Pt was taken off Plavix at the cardiology associates appointment last week. -cont. aspirin 81 mg daily and Eliquis. -Continue with statin therapy. #Hyperlipidemia. -Continue with atorvastatin 40mg #Lower extremity edema. -possible contribution from amlodipine 10mg - continue reduced dose at 5 mg amlodipine daily. 8. Chronic kidney disease, stage III. -Baseline glomerular filtration rate (GFR) is around 50 -will monitor this closely on the Entresto. Disposition home pending improvement in volume status VS, I&O, 24H, Fishbone Vital Signs/I&O Vital Signs Date Time Temp Pulse Resp B/P (MAP) Pulse Ox O2 Delivery O2 Flow Rate FiO2 09/21/18 12:32 128/76 09/21/18 12:00 97.0 96 18 97 09/20/18 04:00 Room Air I&O- Last 24 Hours up to 6 AM 09/21/18 06:00 Intake Total 970 ml Output Total 1075 ml Balance -105 ml Laboratory Data 24H LABS Laboratory Tests 2 09/20/18 16:29: Total Creatine Kinase 51, Creatine Kinase MB < 1.0, Creatine Kinase MB Relative Index 1.96, Troponin I 0.34H 09/20/18 16:42: Bedside Glucose (Misc Panel) 174H 09/20/18 21:02: Bedside Glucose (Misc Panel) 231H 09/21/18 05:31: Nucleated Red Blood Cells % (auto) 0.0, Anion Gap 5L, Glomerular Filtration Rate 55.6, Blood Urea Nitrogen 28H, Creatinine 1.34H, Sodium Level 141, Potassium Level 3.4L, Chloride Level 105, Carbon Dioxide Level 31, Calcium Level 8.4L, Magnesium Level 2.1 09/21/18 12:10: Bedside Glucose (Misc Panel) 210H CBC/BMP Laboratory Tests 09/21/18 05:31 Red Blood Count 4.45, Mean Corpuscular Volume 87.2, Mean Corpuscular Hemoglobin 28.5, Mean Corpuscular Hemoglobin Concent 32.7, Red Cell Distribution Width 12.9, Calcium Level 8.4 L ROSALES MAY MD Sep 21, 2018 14:04
[2018-09-21 16:00] VITALS: BP 135/68
[2018-09-21] MEDS: SPIRONOLACTONE 25 MG TAB PO SCH (18:09)
[2018-09-21 20:00] VITALS: BP 134/71
[2018-09-21] MEDS: FUROSEMIDE 40 MG/4 ML VIAL (J1940) IV SCH (20:04)
[2018-09-21] MEDS: ATORVASTATIN 20 MG TAB PO SCH (20:04)
[2018-09-21] MEDS: METOPROLOL SUCC *XL* 25MG TAB (TopROL *XL*) PO SCH (20:05)
--- NOTE | 2018-09-21 22:24 | IPN ---
DATE: 09/21/2018 TIME OF SERVICE: 3:10 p.m. SUBJECTIVE: Patient reports he has been able to ambulate in the hallways today at a slow pace without shortness of breath. No dizziness or lightheadedness. No orthopnea. No paroxysmal nocturnal dyspnea (PND). No chest pain or chest discomfort. No palpitations. He reports he has less edema in both legs in comparison to admission and to yesterday and that his legs are less tense. PHYSICAL EXAMINATION: Temperature 97.0, pulse 96 (irregularly irregular), respiratory rate 18, blood pressure 128/76, oxygen saturation 97% on room air, weight 111.6 kg. Jugular venous pulsations were at 5 cm. 1-1.2 mm pitting edema was present at midtibia level bilaterally. No venous stasis ulcers or weeping. Carotids were normal in volume and contour. First and second heart sounds were variable in intensity. No S3 or murmurs. Respiratory expansion was good. No crackles or wheezes. Abdomen was soft, nontender with normal bowel sounds. Mood and affect were normal. Speech was normal. Gross motor strength and tone was normal. No skin icterus. Patient was net negative 1490 mL for the 24 hours of 09/20/2018. LABORATORY WORK: 09/21/2018: WBC 10.6, hemoglobin 12.7, hematocrit 38.8, platelets 209. Sodium 141, potassium 3.4, chloride 105, CO2 31, BUN 28, creatinine 1.34, glucose 211, magnesium 2.1. ASSESSMENT AND PLAN: 1. Heart failure (acute on chronic, systolic and diastolic). Heart failure as a consequence of ischemic cardiomyopathy. Hypertensive heart disease likely contributory. Currently [place] Heart Association (NYHA) functional class 2. He remains decompensated, but has generated negative fluid balance, which was excellent and he is tolerating his antihypertensive agents without symptoms. He continues to have a rapid ventricular response with atrial fibrillation. At this point, I have discontinued isosorbide dinitrate and have discontinued hydralazine so that there will be a better chance of being able to escalate the dosage of Entresto, perhaps as early as tomorrow or later today. To improve heart rate control of atrial fibrillation, I have increased metoprolol succinate to a dosage of 75 mg twice a day. I have slowed down the rate of intravenous (IV) furosemide down to 40 mg IV every 8 hours, because the patient is likely to get a good diuresis effect from the Entresto as well. I will also add spironolactone beginning in the dosage of 25 mg daily. The hospitalist, Dr. Troncoso, spoke to me today regarding consideration of a life vest external defibrillator. I completely agree for the patient to receive a life vest external verbal implantable cardioverter defibrillator (ICD). This should be in place for 90 days following hospital discharge with reassessment of his left ventricular ejection fraction at that point and if his left ventricular ejection fraction remains below or at 35%, then he would be a candidate for a permanent ICD. This is discussed with the patient. 2. Coronary artery disease (CAD) ([place] vessel). Continue valsartan (via Entresto), aspirin 81 mg, and atorvastatin at the current dosages. As noted above, the dosage of metoprolol succinate was increased. 3. Old myocardial infarction. As per CAD category. 4. Status post coronary artery bypass graft (CABG). As per CAD category above. 5. Ischemic cardiomyopathy. As per heart failure and CAD categories above. 6. Atrial fibrillation (persistent) with rapid ventricular response. I have increased the dosage of metoprolol succinate to 75 mg twice a day in view of the ongoing rapid ventricular response. Continue Eliquis. 7. Systemic hypertension. Blood pressure has come under good control. Will continue to preserve. Continue the current antihypertensive/anti-heart failure regimen, as described above. 8. Hypercholesterolemia. Continue a-diet. Continue intensive statin therapy. 9. Hypertensive heart disease with congestive heart failure. As per heart failure category above.
[2018-09-22] VITALS (7 sets, daily range): BP systolic 132–160; BP diastolic 58–86
[2018-09-22] MEDS: FUROSEMIDE 40 MG/4 ML VIAL (J1940) IV SCH ×2 (04:04→15:55)
[2018-09-22 05:31] LABS: HEMATOCRIT 40.2 % (42.0-52.0); HEMOGLOBIN 12.9 g/dl (13.5-17.5); MEAN CORPUSCULAR HEMOGLOBIN 28.2 pg (27.0-33.0); MEAN CORPUSCULAR HGB CONC 32.1 g/dl (32.0-36.5); PLATELET COUNT, AUTOMATED 211 10^3/uL (150-450); RED BLOOD COUNT 4.57 10^6/uL (4.30-6.10); WHITE BLOOD COUNT 10.2 10^3/uL (4.0-10.0)
[2018-09-22] MEDS: SLF 3 ML SYR IV SCH ×3 (05:33→20:39)
[2018-09-22 06:01] LABS: CALCIUM LEVEL 8.5 MG/DL (8.8-10.2); CREATININE FOR GFR 1.39 MG/DL (0.70-1.30); GLOMERULAR FILTRATION RATE 53.3 (>42); POTASSIUM SERUM 3.8 MEQ/L (3.5-5.1)
[2018-09-22] MEDS: APIXABAN 5 MG TAB (ELIQUIS) PO SCH ×2 (08:13→20:39)
[2018-09-22] MEDS: ASPIRIN 81 MG ENTERIC TAB PO SCH (08:13)
[2018-09-22] MEDS: METOPROLOL SUCC *XL* 25MG TAB (TopROL *XL*) PO SCH (08:13)
[2018-09-22] MEDS: ENTRESTO 49-51MG TABLET (SACUBITRIL/VALSARTAN) PO SCH (08:13)
[2018-09-22] MEDS: SPIRONOLACTONE 25 MG TAB PO SCH (08:13)
[2018-09-22] MEDS: HumaLOG INSULIN (NovoLOG) PER UNIT SC SCH ×4 (08:14→21:00)
--- NOTE | 2018-09-22 13:01 | IPNPDOC ---
Subjective Date Seen The patient was seen on 09/22/18. Subjective Chief Complaint/HPI Follow-up CHF exacerbation Events since last encounter Patient seen and examined at bedside. Patient doing well today, only complaining of lower extremity swelling that is improving. Otherwise, denies fevers, chills, chest pain, difficulty breathing, nausea, vomiting, diarrhea. Objective Physical Examination General Exam: Positive: Alert, Cooperative, No Acute Distress ENT Exam: Positive: Atraumatic Chest Exam: Positive: Clear to auscultation, Normal air movement Heart Exam: Positive: Rate Normal, Irregular Rhythm Telemetry: Positive: Atrial fibrillation Abdomen Exam: Positive: Normal bowel sounds, Soft; Negative: Tenderness Extremity Exam: Positive: Edema (2+ pitting edema to bilateral lower extremities) Skin Exam: Positive: Nl turgor and temperature; Negative: Rash, Breakdown Psych Exam: Positive: Mental status NL, Mood NL, Oriented x 3 Assessment /Plan Assessment Patient is 73-year-old man who presented with CHF exacerbation Plan/VTE VTE Prophylaxis Ordered?: Yes Plan #Congestive heart failure with reduced ejection fraction. -He has had a significant reduction in ejection fraction from 2017 to his recent echocardiogram last week. -cont. IV Lasix ordered to maintain a net diuresis of 1.5 liters per day. -appreciate Cardiology recs -cont. Entresto will try to uptitrate as per cardiology -stop isosorbide dinitrate with hydralazine -start spironolactone -Daily laboratories have been ordered. -increase to metoprolol succinate 75mg BID -A two-gram sodium diet with 1500 mL per day fluid restriction ordered. -will work on getting pt a lifevest #Atrial fibrillation. -cont. Eliquis 5 mg twice a day. -cont. rate control with metoprolol #Hypertension. -cont. Entresto. -cont. spironolactone #Diabetes. -Hold the metformin in the face of the decompensated heart failure. -Hold Bydureon for now. -Sliding scale with insulin coverage - will consider restarting glyburide based on diabetic control in the hospital. #Peripheral arterial disease. -Pt was taken off Plavix at the cardiology associates appointment last week. -cont. aspirin 81 mg daily and Eliquis. -Continue with statin therapy. #Hyperlipidemia. -Continue with atorvastatin 40mg #Lower extremity edema. -possible contribution from amlodipine 10mg - continue reduced dose at 5 mg amlodipine daily. #Chronic kidney disease, stage III. -Baseline glomerular filtration rate (GFR) is around 50 -will monitor this closely on the Entresto. Disposition home pending further optimization of fluid status VS, I&O, 24H, Fishbone Vital Signs/I&O Vital Signs Date Time Temp Pulse Resp B/P (MAP) Pulse Ox O2 Delivery O2 Flow Rate FiO2 09/22/18 11:56 97.0 80 20 148/78 (101) 96 09/20/18 04:00 Room Air I&O- Last 24 Hours up to 6 AM 09/22/18 06:00 Intake Total 1830 ml Output Total 2300 ml Balance -470 ml Laboratory Data 24H LABS Laboratory Tests 2 09/21/18 18:05: Bedside Glucose (Misc Panel) 235H 09/21/18 20:48: Bedside Glucose (Misc Panel) 240H 09/22/18 05:07: Nucleated Red Blood Cells % (auto) 0.0, Anion Gap 4L, Glomerular Filtration Rate 53.3, Blood Urea Nitrogen 27H, Creatinine 1.39H, Sodium Level 140, Potassium Level 3.8, Chloride Level 104, Carbon Dioxide Level 32, Calcium Level 8.5L, Magnesium Level 2.0 09/22/18 11:42: Bedside Glucose (Misc Panel) 363H CBC/BMP Laboratory Tests 09/22/18 05:07 Red Blood Count 4.57, Mean Corpuscular Volume 88.0, Mean Corpuscular Hemoglobin 28.2, Mean Corpuscular Hemoglobin Concent 32.1, Red Cell Distribution Width 13.1, Calcium Level 8.5 L ROSALES MAY MD Sep 22, 2018 13:01
--- NOTE | 2018-09-22 17:36 | IPN ---
DATE: 09/22/2018 SUBJECTIVE: The patient reports absence of any exertional dyspnea, walking at a normal pace in the hallways of the progressive care unit. No orthopnea or paroxysmal nocturnal dyspnea (PND). He notes ongoing bilateral edema in both legs, but notes continued improvement. No chest pain or chest discomfort with or without exertion. No palpitations. Overall, he reports feeling well. No orthopnea or paroxysmal nocturnal dyspnea (PND). PHYSICAL EXAMINATION: Pleasant, overweight man who appears his chronological age, who is not in any respiratory or psychologic distress. Temperature 97.0, pulse 80 (irregularly irregular), respiratory 20, blood pressure (BP) 148/78, oxygen saturation 96% on room air. Weight today 110.6 kg, which is down 1 kg from yesterday. Input/output for the 24 hours of 09/21/2018 showed the patient to be net negative 20 mL. So far today, he has been net negative 1,410 mL. Jugular venous pulsations were at 8 cm. Carotids are normal in volume and contour and without bruits. First and second heart sounds were variable in intensity. No S3 or murmurs appreciated. No palpable apex beat. No lifts, heaves, thrills or palpable heart sounds. Respiratory expansion effort was good. No crackles or wheezes. Abdomen was obese, soft, nontender and with normal bowel sounds. No organomegaly. 8 to 10 mm of pitting edema was present at mid and distal tibial level bilaterally. Stasis dermatitis present. Gait was normal. Mood and affect were normal. Speech was normal. Oriented to person, place and time. Laboratory work 09/22/2018 was reviewed: Hemoglobin 12.9, hematocrit 40.2, sodium 140, potassium 3.8, chloride 104, CO2 32, BUN 27, creatinine 1.39, estimated glomerular filtration rate (GFR) 53.3, glucose 221, magnesium 2.0. ASSESSMENT AND PLAN: 1. Heart failure (acute on chronic, systolic and diastolic). Heart failure is secondary to ischemic cardiomyopathy and likely superimposed hypertensive heart disease. He remains decompensated on examination. Possibly [facility] Functional Class II. He appears to be diuresing very well and has lost a kg of weight since yesterday. Renal function remains fairly stable. Today, I have increased metoprolol to 100 mg twice a day. Entresto increased to 97-103 mg twice a day. I have reduced the spironolactone down to 12.5 mg daily since I was going up on the dose of Entresto and I want to make sure that the renal function will remain stable before going back up on the dosage of spironolactone. Continue furosemide 40 mg IV every 8 hours. 2. Coronary artery disease. Prior old inferior/inferolateral myocardial infarct Prior coronary artery bypass graft (CABG). No anginal symptoms. Stable. He is receiving valsartan via sacubitril and the dosage was increased today. The dosage of metoprolol succinate was increased today as noted above. Continue aspirin 81 mg daily. Continue Atorvastatin 40 mg at bedtime (q.h.s.). 3. Old myocardial infarct. As per CD 4. Complete blood count (CBC) (as per CD category above) 5. Ischemic cardiomyopathy as per heart failure category above. 6. Persistent atrial fibrillation. The patient remains in atrial fibrillation. Heart rate controlled, but I would like to see his heart rate consistently below 70 beats per minute and preferably closer to 50 beats per minute. To accomplished this I have increased metoprolol succinate 200 mg twice a day. Continue Eliquis at the current dosage. 7. Hypercholesterolemia. Continue a DASH diet. Continue atorvastatin 40 mg at bedtime (hs). 8. Hypertensive heart disease with heart failure. Blood pressure well controlled. As per heart failure category above.
[2018-09-22] MEDS ORDERED: MOM 30ML SUSPENSION UDC PO ONE (19:45)
[2018-09-22] MEDS: METOPROLOL SUCC (TopROL XL) 100MG *XL* TAB PO SCH (20:38)
[2018-09-22] MEDS: ENTRESTO 97-103MG TABLET (SACUBITRIL/VALSARTAN) PO SCH (20:39)
[2018-09-22] MEDS: ATORVASTATIN 20 MG TAB PO SCH (20:39)
[2018-09-23] MEDS: FUROSEMIDE 40 MG/4 ML VIAL (J1940) IV SCH ×3 (00:07→16:07)
[2018-09-23] MEDS ORDERED: ACETAMINOPHEN TAB 650MG DOSE (2X325MG) PO ONE (02:15)
[2018-09-23 04:00] VITALS: BP 114/69
[2018-09-23 05:31] LABS: HEMATOCRIT 41.8 % (42.0-52.0); HEMOGLOBIN 13.2 g/dl (13.5-17.5); MEAN CORPUSCULAR HEMOGLOBIN 28.7 pg (27.0-33.0); MEAN CORPUSCULAR HGB CONC 31.6 g/dl (32.0-36.5); MEAN CORPUSCULAR VOLUME 90.9 fl (80.0-96.0); PLATELET COUNT, AUTOMATED 205 10^3/uL (150-450)
[2018-09-23] MEDS: SLF 3 ML SYR IV SCH ×2 (05:32→08:23)
[2018-09-23 05:47] LABS: CALCIUM LEVEL 8.3 MG/DL (8.8-10.2); CREATININE FOR GFR 1.46 MG/DL (0.70-1.30); GLOMERULAR FILTRATION RATE 50.4 (>42); MAGNESIUM LEVEL 2.3 MG/DL (1.8-2.4); POTASSIUM SERUM 3.6 MEQ/L (3.5-5.1)
[2018-09-23 07:42] VITALS: BP 130/65
[2018-09-23 08:21] VITALS: BP 130/65
[2018-09-23] MEDS: METOPROLOL SUCC (TopROL XL) 100MG *XL* TAB PO SCH (08:21)
[2018-09-23] MEDS: ASPIRIN 81 MG ENTERIC TAB PO SCH (08:22)
[2018-09-23] MEDS: HumaLOG INSULIN (NovoLOG) PER UNIT SC SCH ×2 (08:22→13:32)
[2018-09-23] MEDS: APIXABAN 5 MG TAB (ELIQUIS) PO SCH (08:22)
[2018-09-23] MEDS: ENTRESTO 97-103MG TABLET (SACUBITRIL/VALSARTAN) PO SCH (08:31)
[2018-09-23] MEDS ORDERED: SPIRONOLACTONE 12.5MG PER 1/2 TABLET PO SCH (09:00)
[2018-09-23] MEDS ORDERED: MIRALAX *UNIT DOSE* 17GM PACKET PO SCH (09:00)
[2018-09-23 12:00] VITALS: BP 140/77
[2018-09-23] MEDS ORDERED: SENOKOT S TAB PO PRN (14:45)
[2018-09-23] MEDS ORDERED: ACETAMINOPHEN TAB 650MG DOSE (2X325MG) PO PRN (14:45)
[2018-09-23] MEDS ORDERED: ENTR1TAB4 PO (15:10)
[2018-09-23] MEDS ORDERED: METO1TAB33 PO (15:10)
[2018-09-23] MEDS ORDERED: TORS20TA2 PO (15:10)
[2018-09-23] MEDS ORDERED: ACET1TAB55 PO (15:10)
[2018-09-23] MEDS ORDERED: ALDA25TA2 PO (15:10)
--- NOTE | 2018-09-23 16:08 | DS.PDOC ---
Discharge Summary General Date of Admission Sep 19, 2018 at 17:06 Date of Discharge 09/23/18 Discharge Summary DISCHARGE DIAGNOSIS:Acute on chronic combined systolic and diastolic congestive heart faillure SECONDARY DIAGNOSIS: 1.Atrial fibrillation 2. Hypertension 3. Diabetes 4. Peripheral arterial disease 5. Dyslipidemia 6. Chronic kidney disease stage III 7. Coronary artery disease 8. Ischemic cardiomyopathy 9. Hypertensive heart disease 10. Osteoarthritis PROCEDURES PERFORMED DURING STAY: None. CONSULTANTS: Cardiology HOSPITAL COURSE: Patient is a 73-year-old man who initially presented decompensated combined diastolic and systolic congestive heart failure as well as atrial fibrillation. He was seen in consultation by Dr. Veras cardiology and was felt that his new significantly reduced ejection fraction was related to ischemic cardiomyopathy. His medication regimen was adjusted he was aggressively diuresed in good improvement in his volume status resolution of his oxygen requirement and improvement in his presenting symptoms of shortness of breath. Given his decreased ejection fraction is concern for sudden cardiac and as such he was fitted for a LifeVest left close follow-up with Dr. Veras in the clinic within 1 week. DISCHARGE MEDICATIONS: Please see below. ALLERGIES: Please see below. SUBJECTIVE: Patient tells me that he is feeling better at this time he is able to lay flat sleep easily does not require any oxygen and this up ambulating independently otherwise patient denies chest pain, shortness, breath, nausea, vomiting, fevers, chills OBJECTIVE: PHYSICAL EXAMINATION: VITAL SIGNS: Please see below. GENERAL: Pleasant elderly man sitting up in a chair eating breakfast awake alert oriented speaking in complete sentences no acute distress HEENT: Moist mucous membranes some mild elevation and CVP CARDIOVASCULAR: S1 S2 irregularly irregular not tachycardic no additional heart sounds appreciated. RESPIRATORY: Clear to auscultation bilaterally. Some diminished breath sounds at the bases ABDOMINAL: Bowel sounds present abdomen soft and nontender grossly obese EXTREMITIES: [No clubbing, cyanosis, 2-3+ persistent edema NEUROLOGICAL: Spontaneously moves all 4 extremities cranial 2 through 12 grossly intact, no gross focal deficits appreciated PSYCHOLOGICAL: Appropriate LABORATORY DATA, MICROBIOLOGY: Please see below. IMAGING STUDIES: Chest x-ray:Cardiomegaly, vascular congestion with bibasilar infiltrates and effusions. Findings are most consistent with CHF and pulmonary edema. Vascular ultrasound:No evidence of deep venous thrombosis of the bilateral lower extremity femoral popliteal venous system. DVT prophylaxis ordered: Eliquis ASSESSMENT AND PLAN: This is a 73-year-old male with acutely decompensated systolic and diastolic congestive heart failure. PROBLEMS: 1. Acute combined systolic diastolic congestive heart failure: Cardiology greatly appreciated the patient does still have some volume overload however he is symptomatically improved continue his diuresis on the outpatient setting I did discuss the disposition plan with Dr. Veras who would like to see him in follow-up in one week. Patient will continue with contrast O spironolactone and torsemide. He has been fitted for a LifeVest today this afternoon will be discharged home with a time his ejection fraction reevaluated in 90 days for assessment for the need for ICD placement. He is advised to have a DASH diet 1800 mL fluid restriction check his daily weights 2. Atrial fibrillation: Rate controlled with metoprolol and anticoagulated. 3. Coronary artery disease: Likely ischemic cardiomyopathy. He is on aspirin and statin beta jax. He is asymptomatic at this time 4. Diabetes: We'll resume his home oral regimen advised him to have a consistent carbohydrate diet as well 5. Osteoarthritis: I have advised against ibuprofen in an effort to protect his kidneys and suggested if Tylenol is effective he should continue this placement 6. Dyslipidemia: Continue statin 7. Peripheral arterial disease: He is on aspirin and statin continue outpatient follow-up when necessary DISPOSITION: Home to self-care. DISCHARGE CONDITION: Improved and Stable. FOLLOW UP: PCP within 7 days cardiology within 7 days ACTIVITY: As tolerated. DIET:Cardiac diet 2 g sodium 1800 mL fluid restriction consistent carb TIME SPENT ON DISCHARGE: 50 minutes Vital Signs/I&Os Vital Signs Date Time Temp Pulse Resp B/P (MAP) Pulse Ox O2 Delivery O2 Flow Rate FiO2 09/23/18 12:00 96.7 78 18 140/77 (98) 97 09/20/18 04:00 Room Air I&O- Last 24 Hours up to 6 AM 09/23/18 06:00 Intake Total 1600 ml Output Total 2725 ml Balance -1125 ml Laboratory Data Labs 24H Laboratory Tests 2 09/22/18 17:14: Bedside Glucose (Misc Panel) 132H 09/22/18 21:32: Bedside Glucose (Misc Panel) 231H 09/23/18 04:53: Nucleated Red Blood Cells % (auto) 0.0, Anion Gap 4L, Glomerular Filtration Rate 50.4, Blood Urea Nitrogen 31H, Creatinine 1.46H, Sodium Level 140, Potassium Level 3.6, Chloride Level 104, Carbon Dioxide Level 32, Calcium Level 8.3L, Magnesium Level 2.3 09/23/18 12:30: Bedside Glucose (Misc Panel) 401H 09/23/18 12:31: Bedside Glucose (Misc Panel) 334H CBC/BMP Laboratory Tests 09/23/18 04:53 Red Blood Count 4.60, Mean Corpuscular Volume 90.9, Mean Corpuscular Hemoglobin 28.7, Mean Corpuscular Hemoglobin Concent 31.6 L, Red Cell Distribution Width 13.2, Calcium Level 8.3 L FSBS Laboratory Tests Test 09/22/18 17:14 09/22/18 21:32 09/23/18 12:30 09/23/18 12:31 Range/Units Bedside Glucose (Misc Panel) 132 231 401 334 83-110 MG/DL Discharge Medications Scheduled Amlodipine Besylate (Amlodipine Besylate) 5 Mg Tablet, 7.5 MG PO QHS, (Reported) Apixaban (Eliquis) 5 Mg Tablet, 5 MG PO BID, (Reported) Aspirin (Aspir 81) 81 Mg Tablet.dr, 81 MG PO DAILY, (Reported) Chlorthalidone (Chlorthalidone) 25 Mg Tablet, 12.5 MG PO DAILY, (Reported) Exenatide Microspheres (Bydureon) 2 Mg/0.65 Ml Pen.injctr, 2 MG SC QWEEK, (Reported) SUNDAYS Glyburide (Glyburide) 5 Mg Tablet, 10 TAB PO BID, (Reported) Lisinopril (Lisinopril) 40 Mg Tablet, 40 MG PO QHS, (Reported) Metformin HCl (Metformin HCl) 1,000 Mg Tablet, 1,000 MG PO BID, (Reported) Metoprolol Succinate (Metoprolol Succinate) 100 Mg Tab.er.24h, 100 MG PO BID Metoprolol Tartrate (Metoprolol Tartrate) 50 Mg Tablet, 50 MG PO BID, (Reported) Sacubitril/Valsartan (Entresto 97 mg-103 mg Tablet) 1 Each Tablet, 1 TAB PO BID Simvastatin (Zocor) 80 Mg Tablet, 40 MG PO QHS, (Reported) Spironolactone (Aldactone) 25 Mg Tablet, 12.5 MG PO DAILY Torsemide (Torsemide) 20 Mg Tablet, 50 TAB PO DAILY, (Reported) Torsemide (Torsemide) 20 Mg Tablet, 20 MG PO BID Scheduled PRN Acetaminophen (Acetaminophen) 325 Mg Tablet, 650 MG PO Q6HP PRN for PAIN / FEVER Ibuprofen (Ibuprofen) 200 Mg Capsule, 200 MG PO QID PRN for PAIN, (Reported) Allergies Coded Allergies: No Known Allergies (Unverified , 09/19/18) DODIE BRIAN MD Sep 23, 2018 16:08
== END 2018-09-23 17:43 | disposition home or self-care (01) | DRG 291 ==
LOC: M ED 11:38 → M ED INP 17:06 → M MS5PR 22:10 → M ED INP 22:43 → M PCU 09-20 14:25
PROVIDERS: ADMIT Family Medicine; ATTEND Internal Medicine
DX: I13.0 Hypertensive heart and chronic kidney disease with heart failure and stage 1 through stage 4 chronic kidney disease, or unspecified chronic kidney disease (principal); I50.43 Acute on chronic combined systolic (congestive) and diastolic (congestive) heart failure; I48.1 Persistent atrial fibrillation; N18.3 Chronic kidney disease, stage 3 (moderate); M19.90 Unspecified osteoarthritis, unspecified site; I25.10 Atherosclerotic heart disease of native coronary artery without angina pectoris; E78.5 Hyperlipidemia, unspecified; E11.51 Type 2 diabetes mellitus with diabetic peripheral angiopathy without gangrene; I25.5 Ischemic cardiomyopathy; Z79.899 Other long term (current) drug therapy; Z79.82 Long term (current) use of aspirin; Z79.01 Long term (current) use of anticoagulants; I25.2 Old myocardial infarction; E66.9 Obesity, unspecified; J44.9 Chronic obstructive pulmonary disease, unspecified; I34.0 Nonrheumatic mitral (valve) insufficiency; Z87.891 Personal history of nicotine dependence; Z95.1 Presence of aortocoronary bypass graft

== ENCOUNTER → 2018-10-03 | Outpatient (CLI) | payer MEDICARE ==
[~2018-10-03] MED LIST changes: +ACET1TAB55 PO; +ALDA25TA2 PO; +ENTR1TAB4 PO; +METO1TAB33 PO
[2018-10-03 13:32] LABS: CALCIUM LEVEL 9.2 MG/DL (8.8-10.2); CREATININE FOR GFR 1.8 MG/DL (0.70-1.30); GLOMERULAR FILTRATION RATE 39.6 (>42); MAGNESIUM LEVEL 2.1 MG/DL (1.8-2.4); POTASSIUM SERUM 4.7 MEQ/L (3.5-5.1)
== END ==
LOC: M SMT 10:55
PROVIDERS: ATTEND Physician Assistant
DX: I50.41 Acute combined systolic (congestive) and diastolic (congestive) heart failure (principal); I48.91 Unspecified atrial fibrillation

== ENCOUNTER → 2018-10-10 | Outpatient (REF) | payer MEDICARE ==
[2018-10-10 16:04] LABS: HEMATOCRIT 38.6 % (42.0-52.0); HEMOGLOBIN 12.5 g/dl (13.5-17.5); MEAN CORPUSCULAR HEMOGLOBIN 28.5 pg (27.0-33.0); MEAN CORPUSCULAR HGB CONC 32.4 g/dl (32.0-36.5); MEAN CORPUSCULAR VOLUME 88.1 fl (80.0-96.0); PLATELET COUNT, AUTOMATED 184 10^3/uL (150-450); RED BLOOD COUNT 4.38 10^6/uL (4.30-6.10)
[2018-10-10 16:07] LABS: CREATININE FOR GFR 2.01 MG/DL (0.70-1.30); GLOMERULAR FILTRATION RATE 34.8 (>42); POTASSIUM SERUM 5.1 MEQ/L (3.5-5.1)
== END ==
LOC: M LABDRAW1 11:37
PROVIDERS: ATTEND Physician Assistant
DX: I50.42 Chronic combined systolic (congestive) and diastolic (congestive) heart failure (principal); I48.1 Persistent atrial fibrillation

== ENCOUNTER → 2018-10-21 | Outpatient (CLI) | payer MEDICARE ==
[~2018-10-21] MED LIST changes: -SIMV40TA2 PO; +SIMV40TA20 PO
[2018-10-21 17:46] LABS: CALCIUM LEVEL 8.9 MG/DL (8.8-10.2); CREATININE FOR GFR 1.86 MG/DL (0.70-1.30); GLOMERULAR FILTRATION RATE 38.1 (>42); POTASSIUM SERUM 4.9 MEQ/L (3.5-5.1)
== END ==
LOC: M SMT 12:15
PROVIDERS: ATTEND Family Medicine
DX: Z98.61 Coronary angioplasty status (principal)

== ENCOUNTER → 2018-12-05 | Outpatient (CLI) | payer MEDICARE ==
[~2018-12-05] MED LIST changes: +SIMV40TA2 PO; -SIMV40TA20 PO
[2018-12-05 13:18] LABS: CALCIUM LEVEL 8.6 MG/DL (8.8-10.2); CREATININE FOR GFR 2.55 MG/DL (0.70-1.30); GLOMERULAR FILTRATION RATE 26.5 (>42); MAGNESIUM LEVEL 2.1 MG/DL (1.8-2.4); POTASSIUM SERUM 5.2 MEQ/L (3.5-5.1)
== END ==
LOC: M SMT 09:33
PROVIDERS: ATTEND Physician Assistant
DX: I25.5 Ischemic cardiomyopathy (principal)

== ENCOUNTER → 2018-12-13 | Outpatient (REF) | payer MEDICARE ==
[2018-12-13 12:59] LABS: ALBUMIN 3.6 GM/DL (3.2-5.2); BILIRUBIN,TOTAL 0.5 MG/DL (0.2-1.0); CALCIUM LEVEL 9.1 MG/DL (8.8-10.2); CREATININE FOR GFR 1.78 MG/DL (0.70-1.30); GLOMERULAR FILTRATION RATE 40.1 (>42); MAGNESIUM LEVEL 2.1 MG/DL (1.8-2.4); POTASSIUM SERUM 5.1 MEQ/L (3.5-5.1); TOTAL PROTEIN 6.8 GM/DL (6.4-8.2)
[2018-12-13 13:33] LABS: HEMOGLOBIN A1c 9.3 %
== END ==
LOC: M SFHCPLAZ 08:29
PROVIDERS: ATTEND Internal Medicine
DX: I10 Essential (primary) hypertension (principal); E11.51 Type 2 diabetes mellitus with diabetic peripheral angiopathy without gangrene

== ENCOUNTER → 2018-12-19 | Outpatient (CLI) | payer MEDICARE ==
[2018-12-19 10:37] LABS: CALCIUM LEVEL 8.8 MG/DL (8.8-10.2); CREATININE FOR GFR 1.73 MG/DL (0.70-1.30); GLOMERULAR FILTRATION RATE 41.4 (>42); POTASSIUM SERUM 4.9 MEQ/L (3.5-5.1)
== END ==
LOC: M SMT 08:47
PROVIDERS: ATTEND Physician Assistant
DX: I25.5 Ischemic cardiomyopathy (principal)

== ENCOUNTER → 2019-02-06 | Outpatient (REF) | payer MEDICARE ==
[~2019-02-06] MED LIST changes: -SIMV40TA2 PO; +SIMV40TA20 PO
[2019-02-06 16:52] LABS: CREATININE FOR GFR 1.7 MG/DL (0.70-1.30); GLOMERULAR FILTRATION RATE 42.3 (>42); MAGNESIUM LEVEL 2.2 MG/DL (1.8-2.4); POTASSIUM SERUM 4.6 MEQ/L (3.5-5.1)
== END ==
LOC: M LABDRAW1 15:35
PROVIDERS: ATTEND Physician Assistant
DX: I50.42 Chronic combined systolic (congestive) and diastolic (congestive) heart failure (principal)

== ENCOUNTER → 2019-03-07 | Outpatient (CLI) | payer MEDICARE ==
[2019-03-07 12:34] LABS: HEMOGLOBIN 12.7 g/dl (13.5-17.5); MEAN CORPUSCULAR HEMOGLOBIN 29.3 pg (27.0-33.0); MEAN CORPUSCULAR VOLUME 94.7 fl (80.0-96.0); PLATELET COUNT, AUTOMATED 173 10^3/uL (150-450); RED BLOOD COUNT 4.33 10^6/uL (4.30-6.10); WHITE BLOOD COUNT 8.6 10^3/uL (4.0-10.0)
[2019-03-07 13:44] LABS: ALBUMIN 3.6 GM/DL (3.2-5.2); BILIRUBIN,TOTAL 0.7 MG/DL (0.2-1.0); CHOLESTEROL RISK RATIO 3.088 (<5); CREATININE FOR GFR 1.79 MG/DL (0.70-1.30); GLOMERULAR FILTRATION RATE 39.8 (>42); MAGNESIUM LEVEL 2.3 MG/DL (1.8-2.4); POTASSIUM SERUM 4.7 MEQ/L (3.5-5.1); TOTAL PROTEIN 6.6 GM/DL (6.4-8.2)
[2019-03-07 13:58] LABS: CREATININE, URINE 18.8 MG/DL; MALB URINE SIEMENS 8.1 MG/L
[2019-03-07 15:37] LABS: HEMOGLOBIN A1c 8.7 %
== END ==
LOC: M PLALAB 09:04
PROVIDERS: ATTEND Internal Medicine
DX: E11.51 Type 2 diabetes mellitus with diabetic peripheral angiopathy without gangrene (principal); I10 Essential (primary) hypertension; G57.91 Unspecified mononeuropathy of right lower limb; I25.10 Atherosclerotic heart disease of native coronary artery without angina pectoris

== ENCOUNTER → 2019-05-08 | Outpatient (CLI) | payer MEDICARE ==
[2019-05-08 11:04] LABS: ALBUMIN 3.7 GM/DL (3.2-5.2); BILIRUBIN,TOTAL 0.7 MG/DL (0.2-1.0); CALCIUM LEVEL 8.9 MG/DL (8.8-10.2); CREATININE FOR GFR 1.46 MG/DL (0.70-1.30); GLOMERULAR FILTRATION RATE 50.2 (>42); POTASSIUM SERUM 4.1 MEQ/L (3.5-5.1); TOTAL PROTEIN 6.5 GM/DL (6.4-8.2)
== END ==
LOC: M LAB 09:06
PROVIDERS: ATTEND Nurse Practitioner Adult Health
DX: I50.42 Chronic combined systolic (congestive) and diastolic (congestive) heart failure (principal)

== ENCOUNTER → 2019-05-19 | Outpatient (REF) | payer MEDICARE ==
[2019-05-19 12:14] LABS: ALBUMIN 3.6 GM/DL (3.2-5.2); BILIRUBIN,TOTAL 0.9 MG/DL (0.2-1.0); CALCIUM LEVEL 8.7 MG/DL (8.8-10.2); CREATININE FOR GFR 1.67 MG/DL (0.70-1.30); POTASSIUM SERUM 4.4 MEQ/L (3.5-5.1); TOTAL PROTEIN 6.6 GM/DL (6.4-8.2)
[2019-05-19 12:21] LABS: CREATININE, URINE 19.7 MG/DL; MALB URINE SIEMENS 18.4 MG/L; MAU/CREAT RATIO 93.4 MCG/MG (0.0-30.0)
[2019-05-19 13:00] LABS: HEMOGLOBIN A1c 10.7 %
== END ==
LOC: M SFHCPLAZ 08:39
PROVIDERS: ATTEND Internal Medicine
DX: I50.42 Chronic combined systolic (congestive) and diastolic (congestive) heart failure (principal); I11.0 Hypertensive heart disease with heart failure; E11.51 Type 2 diabetes mellitus with diabetic peripheral angiopathy without gangrene; Z12.5 Encounter for screening for malignant neoplasm of prostate
CPT/HCPCS: 80053; 82043; 83036; 83880; G0103

== ENCOUNTER → 2019-07-25 | Outpatient (CLI) | payer MEDICARE ==
[2019-07-25 15:55] LABS: CALCIUM LEVEL 8.5 MG/DL (8.8-10.2); CREATININE FOR GFR 2.09 MG/DL (0.70-1.30); GLOMERULAR FILTRATION RATE 33.2 (>42); MAGNESIUM LEVEL 2.3 MG/DL (1.8-2.4)
== END ==
LOC: M PLALAB 12:45
PROVIDERS: ATTEND Physician Assistant
DX: I50.42 Chronic combined systolic (congestive) and diastolic (congestive) heart failure (principal)

== ENCOUNTER → 2019-07-31 | Outpatient (CLI) | payer MEDICARE ==
[~2019-07-31] MED LIST changes: -EQ I1CAP PO; +IBUP200C89 PO
[2019-07-31 10:45] LABS: HEMATOCRIT 40.8 % (42.0-52.0); HEMOGLOBIN 13.2 g/dl (13.5-17.5); MEAN CORPUSCULAR HEMOGLOBIN 29.4 pg (27.0-33.0); MEAN CORPUSCULAR HGB CONC 32.4 g/dl (32.0-36.5); MEAN CORPUSCULAR VOLUME 90.9 fl (80.0-96.0); PLATELET COUNT, AUTOMATED 179 10^3/uL (150-450); RED BLOOD COUNT 4.49 10^6/uL (4.30-6.10); WHITE BLOOD COUNT 7.6 10^3/uL (4.0-10.0)
[2019-07-31 10:54] LABS: CREATININE FOR GFR 2.23 MG/DL (0.70-1.30); GLOMERULAR FILTRATION RATE 30.8 (>42); MAGNESIUM LEVEL 2.4 MG/DL (1.8-2.4); POTASSIUM SERUM 4.2 MEQ/L (3.5-5.1)
== END ==
LOC: M PLALAB 08:41
PROVIDERS: ATTEND Physician Assistant
DX: I50.43 Acute on chronic combined systolic (congestive) and diastolic (congestive) heart failure (principal)

== ENCOUNTER → 2019-08-16 | Outpatient (CLI) | payer MEDICARE ==
[~2019-08-16] MED LIST changes: +AMLO1TAB24 PO; -AMLO5TAB6 PO; -ASPI81TA85 PO; +ASPI81TA86 PO; -GLYB5TA PO; +GLYB5TAB6 PO; -LISI40TA PO; +LISI40TA4 PO
[2019-08-16 13:28] LABS: CALCIUM LEVEL 8.7 MG/DL (8.8-10.2); CREATININE FOR GFR 2.28 MG/DL (0.70-1.30); MAGNESIUM LEVEL 2.2 MG/DL (1.8-2.4); POTASSIUM SERUM 3.9 MEQ/L (3.5-5.1)
== END ==
LOC: M PLALAB 09:46
PROVIDERS: ATTEND Physician Assistant
DX: I50.41 Acute combined systolic (congestive) and diastolic (congestive) heart failure (principal); R06.02 Shortness of breath

== ENCOUNTER → 2019-08-29 | Outpatient (REF) | payer MEDICARE ==
[~2019-08-29] MED LIST changes: -AMLO1TAB24 PO; +AMLO5TAB6 PO; +ASPI81TA85 PO; -ASPI81TA86 PO; +GLYB5TA PO; -GLYB5TAB6 PO; +LISI40TA PO; -LISI40TA4 PO
[2019-08-29 11:47] LABS: BASO % 0.6 % (0.0-1.0); EOS # 0.3 10^3/uL (0.0-0.5); EOS % 3.6 % (0.0-3.0); HEMATOCRIT 39.6 % (42.0-52.0); HEMOGLOBIN 12.7 g/dl (13.5-17.5); LYMPH # 2.1 10^3/uL (1.5-5.0); LYMPH % 30.3 % (24.0-44.0); MEAN CORPUSCULAR HEMOGLOBIN 29.3 pg (27.0-33.0); MEAN CORPUSCULAR HGB CONC 32.1 g/dl (32.0-36.5); MEAN CORPUSCULAR VOLUME 91.5 fl (80.0-96.0); MONO # 0.4 10^3/uL (0.0-0.8); MONO % 6.4 % (0.0-5.0); NEUTROPHILS # 4.1 10^3/uL (1.5-8.5); PLATELET COUNT, AUTOMATED 159 10^3/uL (150-450); RED BLOOD COUNT 4.33 10^6/uL (4.30-6.10); WHITE BLOOD COUNT 6.9 10^3/uL (4.0-10.0)
[2019-08-29 12:12] LABS: ALBUMIN 3.7 GM/DL (3.2-5.2); BILIRUBIN,TOTAL 0.9 MG/DL (0.2-1.0); CALCIUM LEVEL 9.2 MG/DL (8.8-10.2); CREATININE FOR GFR 2.19 MG/DL (0.70-1.30); GLOMERULAR FILTRATION RATE 31.5 (>42); MAGNESIUM LEVEL 2.4 MG/DL (1.8-2.4); POTASSIUM SERUM 4.3 MEQ/L (3.5-5.1); TOTAL PROTEIN 6.9 GM/DL (6.4-8.2)
[2019-08-29 13:12] LABS: CREATININE, URINE 70.1 MG/DL; MALB URINE SIEMENS 33.2 MG/L; MAU/CREAT RATIO 47.3 MCG/MG (0.0-30.0)
[2019-08-29 13:17] LABS: HEMOGLOBIN A1c 10.5 %
== END ==
LOC: M PLALAB 08:35
PROVIDERS: ATTEND Internal Medicine
DX: I50.42 Chronic combined systolic (congestive) and diastolic (congestive) heart failure (principal); E11.51 Type 2 diabetes mellitus with diabetic peripheral angiopathy without gangrene; I11.0 Hypertensive heart disease with heart failure; Z86.010 Personal history of colon polyps

== ENCOUNTER → 2019-09-12 | Outpatient (CLI) | payer MEDICARE ==
[~2019-09-12] MED LIST changes: +AMLO1TAB24 PO; -AMLO5TAB6 PO; -ASPI81TA85 PO; +ASPI81TA86 PO
--- NOTE | 2019-09-13 03:35 | REP ---
REASON: Assess for stenosis. PRIORS: None. There is echogenic material seen along the carotid arterial orr, some of which casts an acoustic shadow, consistent with calcific deposition bilaterally. RIGHT LEFT CCA systolic 86.8 cm/s 46.4 cm/s CCA diastolic 16.3 cm/s 11.8 cm/s ICA systolic 67.4 cm/s 71.4 cm/s ICA diastolic 26.4 cm/s 23.8 cm/s ICA/CCA ratio 0.78 1.52 Spectral waveform analysis shows antegrade flow in both vertebral arteries; however, there is evidence of slow flow in the vertebral arteries, less than 15 cm/s bilaterally. IMPRESSION: 1. According to the NASCET consensus criteria, there is less than 50% stenosis of the internal carotid artery bilaterally. This is secondary to both calcified and noncalcified plaque formation. 2. Slow flow in the vertebral artery bilaterally. Electronically Signed by Kaleb Doll DO 09/13/2019 12:40 P
== END ==
LOC: M RAD 15:42
PROVIDERS: ATTEND Physician Assistant
DX: I65.23 Occlusion and stenosis of bilateral carotid arteries (principal)

== ENCOUNTER → 2019-09-14 | Outpatient (CLI) | payer MEDICARE ==
[2019-09-14 12:58] LABS: HEMATOCRIT 37.1 % (42.0-52.0); MEAN CORPUSCULAR HEMOGLOBIN 29.4 pg (27.0-33.0); MEAN CORPUSCULAR HGB CONC 32.3 g/dl (32.0-36.5); MEAN CORPUSCULAR VOLUME 90.9 fl (80.0-96.0); PLATELET COUNT, AUTOMATED 144 10^3/uL (150-450); RED BLOOD COUNT 4.08 10^6/uL (4.30-6.10); WHITE BLOOD COUNT 6.6 10^3/uL (4.0-10.0)
[2019-09-14 13:35] LABS: CALCIUM LEVEL 8.9 MG/DL (8.8-10.2); CREATININE FOR GFR 2.01 MG/DL (0.70-1.30); GLOMERULAR FILTRATION RATE 34.7 (>42); MAGNESIUM LEVEL 2.1 MG/DL (1.8-2.4); POTASSIUM SERUM 4.3 MEQ/L (3.5-5.1)
== END ==
LOC: M PLALAB 09:32
PROVIDERS: ATTEND Physician Assistant
DX: I50.42 Chronic combined systolic (congestive) and diastolic (congestive) heart failure (principal); I48.21 Permanent atrial fibrillation; Z79.82 Long term (current) use of aspirin

== ENCOUNTER → 2019-12-13 | Outpatient (CLI) | payer MEDICARE ==
[2019-12-13 13:07] LABS: CALCIUM LEVEL 9.1 MG/DL (8.8-10.2); CREATININE FOR GFR 2.87 MG/DL (0.70-1.30); MAGNESIUM LEVEL 2.5 MG/DL (1.8-2.4); POTASSIUM SERUM 4.6 MEQ/L (3.5-5.1)
== END ==
LOC: M LAB 11:37
PROVIDERS: ATTEND Physician Assistant
DX: I50.42 Chronic combined systolic (congestive) and diastolic (congestive) heart failure (principal); Z79.01 Long term (current) use of anticoagulants

== ENCOUNTER → 2020-01-05 | Outpatient (CLI) | payer MEDICARE ==
[2020-01-05 12:22] LABS: HEMATOCRIT 35.4 % (42.0-52.0); HEMOGLOBIN 11.1 g/dl (13.5-17.5); MEAN CORPUSCULAR HEMOGLOBIN 29.2 pg (27.0-33.0); MEAN CORPUSCULAR HGB CONC 31.4 g/dl (32.0-36.5); MEAN CORPUSCULAR VOLUME 93.2 fl (80.0-96.0); PLATELET COUNT, AUTOMATED 151 10^3/uL (150-450); WHITE BLOOD COUNT 7.4 10^3/uL (4.0-10.0)
[2020-01-05 12:46] LABS: CALCIUM LEVEL 9.2 MG/DL (8.8-10.2); CREATININE FOR GFR 2.76 MG/DL (0.70-1.30); GLOMERULAR FILTRATION RATE 24.1 (>42); MAGNESIUM LEVEL 2.2 MG/DL (1.8-2.4); POTASSIUM SERUM 4.9 MEQ/L (3.5-5.1)
== END ==
LOC: M PLALAB 09:17
PROVIDERS: ATTEND Physician Assistant
DX: I50.42 Chronic combined systolic (congestive) and diastolic (congestive) heart failure (principal)

== ENCOUNTER → 2020-01-31 | Outpatient (CLI) | payer MEDICARE ==
[2020-01-31 13:49] LABS: HEMOGLOBIN A1c 8.9 %
[2020-01-31 13:53] LABS: ALBUMIN 3.6 GM/DL (3.2-5.2); BILIRUBIN,TOTAL 0.8 MG/DL (0.2-1.0); CALCIUM LEVEL 9.1 MG/DL (8.8-10.2); CREATININE FOR GFR 2.56 MG/DL (0.70-1.30); GLOMERULAR FILTRATION RATE 26.3 (>42); MAGNESIUM LEVEL 2.3 MG/DL (1.8-2.4); POTASSIUM SERUM 4.9 MEQ/L (3.5-5.1); TOTAL PROTEIN 6.8 GM/DL (6.4-8.2)
[2020-01-31 13:57] LABS: CALCIUM LEVEL 9.4 MG/DL (8.8-10.2); CREATININE FOR GFR 2.59 MG/DL (0.70-1.30); GLOMERULAR FILTRATION RATE 25.9 (>42); POTASSIUM SERUM 4.6 MEQ/L (3.5-5.1)
[2020-01-31 14:01] LABS: PTH INTACT 181.5 PG/ML (18.5-88.0)
== END ==
LOC: M PLALAB 10:10
PROVIDERS: ATTEND Physician Assistant
DX: I13.0 Hypertensive heart and chronic kidney disease with heart failure and stage 1 through stage 4 chronic kidney disease, or unspecified chronic kidney disease (principal); N18.30 Chronic kidney disease, stage 3 unspecified; E11.51 Type 2 diabetes mellitus with diabetic peripheral angiopathy without gangrene; I50.42 Chronic combined systolic (congestive) and diastolic (congestive) heart failure; E11.22 Type 2 diabetes mellitus with diabetic chronic kidney disease

== ENCOUNTER → 2020-03-11 | Outpatient (CLI) | payer MEDICARE ==
[2020-03-11 12:26] LABS: CALCIUM LEVEL 9.2 MG/DL (8.8-10.2); CREATININE FOR GFR 3.09 MG/DL (0.70-1.30); GLOMERULAR FILTRATION RATE 21.1 (>42); MAGNESIUM LEVEL 2.4 MG/DL (1.8-2.4); POTASSIUM SERUM 4.1 MEQ/L (3.5-5.1)
== END ==
LOC: M PLALAB 09:03
PROVIDERS: ATTEND Physician Assistant
DX: I50.42 Chronic combined systolic (congestive) and diastolic (congestive) heart failure (principal)

== ENCOUNTER → 2020-03-29 | Outpatient (CLI) | payer MEDICARE ==
--- NOTE | 2020-03-29 08:30 | REP ---
INDICATION: CKD, DIABETES COMPARISON: None TECHNIQUE: Real time ozuna scale ultrasound examination using curved array transducer. FINDINGS: The bilateral kidneys demonstrate increased central sinus fat and subtle renovascular calcifications without hydronephrosis, nephrolithiasis or renal mass lesion. Right kidney measures 11.4 x 6.8 x 6.2 cm. Left kidney measures 10.6 x 4.7 x 4.8 cm and includes 3.5 x 3.1 x 3.0 cm midpole cortical simple cyst. Bladder is normal in appearance without wall thickening or mass lesion. Prevoid bladder measures 7.8 x 6.2 x 4.6 cm (145 cc). Postvoid bladder is completely empty. IMPRESSION: Findings consistent with chronic medical renal disease. Simple left renal cyst. Normal appearance of the bladder. <Electronically signed by Bryan Chambers > 03/29/20 [id number]
--- NOTE | 2020-03-29 08:31 | REP ---
INDICATION: CKD, DIABETES COMPARISON: None TECHNIQUE: Real time B-mode ultrasound examination using curved array transducer. FINDINGS: Bladder is normal in appearance without wall thickening or mass lesion. Prevoid bladder measures 7.8 x 6.2 x 4.6 cm (145 cc). Postvoid bladder is completely empty. IMPRESSION: 1. Normal bladder ultrasound. <Electronically signed by Bryan Chambers > 03/29/20 [id number]
== END ==
LOC: M RAD 06:54
PROVIDERS: ATTEND Internal Medicine Nephrology
DX: N18.4 Chronic kidney disease, stage 4 (severe) (principal); E11.22 Type 2 diabetes mellitus with diabetic chronic kidney disease; I50.42 Chronic combined systolic (congestive) and diastolic (congestive) heart failure; N28.1 Cyst of kidney, acquired

== ENCOUNTER → 2020-04-30 | Outpatient (CLI) | payer MEDICARE ==
[~2020-04-30] MED LIST changes: -GLYB5TA PO; +GLYB5TAB6 PO; -LISI40TA PO; +LISI40TA4 PO
[2020-04-30 11:00] LABS: CREATININE FOR GFR 3.85 MG/DL (0.70-1.30); GLOMERULAR FILTRATION RATE 16.4 (>42); MAGNESIUM LEVEL 2.6 MG/DL (1.8-2.4); POTASSIUM SERUM 4.7 MEQ/L (3.5-5.1)
== END ==
LOC: M PLALAB 08:25
PROVIDERS: ATTEND Physician Assistant
DX: I50.42 Chronic combined systolic (congestive) and diastolic (congestive) heart failure (principal)

== ENCOUNTER → 2020-05-02 | Outpatient (REF) | payer MEDICARE ==
[2020-05-02 13:20] LABS: BASO % 0.6 % (0.0-1.0); EOS # 0.2 10^3/uL (0.0-0.5); EOS % 3.2 % (0.0-3.0); HEMATOCRIT 35.8 % (42.0-52.0); HEMOGLOBIN 11.3 g/dl (13.5-17.5); LYMPH # 1.9 10^3/uL (1.5-5.0); LYMPH % 28.1 % (24.0-44.0); MEAN CORPUSCULAR HGB CONC 31.6 g/dl (32.0-36.5); MEAN CORPUSCULAR VOLUME 88.8 fl (80.0-96.0); MONO # 0.6 10^3/uL (0.0-0.8); MONO % 8.8 % (2.0-8.0); NEUTROPHILS % 59.2 % (36.0-66.0); PLATELET COUNT, AUTOMATED 172 10^3/uL (150-450); RED BLOOD COUNT 4.03 10^6/uL (4.30-6.10); WHITE BLOOD COUNT 6.8 10^3/uL (4.0-10.0)
[2020-05-02 14:06] LABS: ALBUMIN 3.8 GM/DL (3.2-5.2); BILIRUBIN,TOTAL 0.5 MG/DL (0.2-1.0); CALCIUM LEVEL 8.8 MG/DL (8.8-10.2); CHOLESTEROL RISK RATIO 2.615 (<5); CREATININE FOR GFR 4.31 MG/DL (0.70-1.30); GLOMERULAR FILTRATION RATE 14.4 (>42); MAGNESIUM LEVEL 2.6 MG/DL (1.8-2.4); POTASSIUM SERUM 4.5 MEQ/L (3.5-5.1); TOTAL PROTEIN 7.1 GM/DL (6.4-8.2)
[2020-05-02 14:12] LABS: PTH INTACT 197.7 PG/ML (18.5-88.0)
[2020-05-02 14:52] LABS: CREATININE, URINE 66.1 MG/DL; MALB URINE SIEMENS 32.4 MG/L
[2020-05-02 15:44] LABS: HEMOGLOBIN A1c 8.8 %
== END ==
LOC: M SFHCPLAZ 09:41
PROVIDERS: ATTEND Internal Medicine
DX: E11.51 Type 2 diabetes mellitus with diabetic peripheral angiopathy without gangrene (principal); I12.9 Hypertensive chronic kidney disease with stage 1 through stage 4 chronic kidney disease, or unspecified chronic kidney disease; Z86.010 Personal history of colon polyps; N18.4 Chronic kidney disease, stage 4 (severe); I25.10 Atherosclerotic heart disease of native coronary artery without angina pectoris

== ENCOUNTER → 2020-05-09 | Outpatient (REF) | payer MEDICARE ==
[2020-05-09 17:32] LABS: PERCENT SATURATION 11.8 % (19.7-50.0)
== END ==
LOC: M LAB REF 16:44
PROVIDERS: ATTEND Internal Medicine Nephrology
DX: N18.9 Chronic kidney disease, unspecified (principal); D63.1 Anemia in chronic kidney disease

== ENCOUNTER → 2020-07-15 | Outpatient (REF) | payer MEDICARE ==
[2020-07-15 10:28] LABS: HEMOGLOBIN A1c 8.4 %
== END ==
LOC: M PLALAB 08:43
PROVIDERS: ATTEND Internal Medicine
DX: E11.51 Type 2 diabetes mellitus with diabetic peripheral angiopathy without gangrene (principal)

== ENCOUNTER → 2020-08-12 | Outpatient (CLI) | payer MEDICARE ==
--- NOTE | 2020-08-12 10:24 | REP ---
INDICATION: RENOVASCULAR HYPERTENSION, ? RENAL ARTERY STENOSIS. COMPARISON: None. TECHNIQUE: MR a renal arteries performed without the use of intravenous contrast utilizing 3D [id number] technique, with MIP reconstruction images. FINDINGS: The abdominal aorta at the level of the renal arteries is normal in caliber. There are findings compatible with high-grade stenosis of the main right renal artery approximately 1.2 cm distal to its origin. There is variable high-grade stenosis of the main left renal artery, greatest proximally 1.7 cm distal to its origin. There is diffuse cortical thinning of the left kidney. There is a simple appearing cyst of the upper left kidney approximately 3.6 cm in diameter. There is no hydronephrosis bilaterally. 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 <Electronically signed by Juno Harltey > 08/12/20 [id number]
== END ==
LOC: M RAD 07:35
PROVIDERS: ATTEND Internal Medicine Nephrology
DX: I48.0 Paroxysmal atrial fibrillation (principal)

== ENCOUNTER → 2020-10-09 | Outpatient (REF) | payer MEDICARE ==
[2020-10-09 14:26] LABS: MAGNESIUM LEVEL 2.5 MG/DL (1.8-2.4)
== END ==
LOC: M LAB REF 13:03
PROVIDERS: ATTEND Internal Medicine Nephrology
DX: N18.4 Chronic kidney disease, stage 4 (severe) (principal)

== ENCOUNTER → 2020-11-25 | Outpatient (CLI) | payer MEDICARE ==
[2020-11-25 13:50] LABS: CALCIUM LEVEL 8.5 MG/DL (8.8-10.2); CREATININE FOR GFR 2.52 MG/DL (0.70-1.30); GLOMERULAR FILTRATION RATE 26.7 (>42); MAGNESIUM LEVEL 2.1 MG/DL (1.8-2.4); POTASSIUM SERUM 4.8 MEQ/L (3.5-5.1)
== END ==
LOC: M PLALAB 10:18
PROVIDERS: ATTEND Physician Assistant
DX: I50.42 Chronic combined systolic (congestive) and diastolic (congestive) heart failure (principal)

== ENCOUNTER → 2020-12-03 | Outpatient (CLI) | payer MEDICARE | LOC: M PLALAB 13:07 | PROVIDERS: ATTEND Internal Medicine | DX: Z12.5 Encounter for screening for malignant neoplasm of prostate (principal); E11.51 Type 2 diabetes mellitus with diabetic peripheral angiopathy without gangrene | CPT/HCPCS: 36415; 83036; G0103 ==

== ENCOUNTER → 2021-01-21 | Outpatient (REF) | payer MEDICARE | LOC: M LAB REF 13:10 | PROVIDERS: ATTEND Internal Medicine Nephrology | DX: N18.4 Chronic kidney disease, stage 4 (severe) (principal) ==

== ENCOUNTER → 2021-03-03 | Outpatient (CLI) | payer MEDICARE ==
[2021-03-03 14:06] LABS: CALCIUM LEVEL 8.7 MG/DL (8.8-10.2); CREATININE FOR GFR 2.47 MG/DL (0.70-1.30); GLOMERULAR FILTRATION RATE 27.3 (>42); MAGNESIUM LEVEL 2.2 MG/DL (1.8-2.4); POTASSIUM SERUM 3.7 MEQ/L (3.5-5.1)
== END ==
LOC: M PLALAB 10:55
PROVIDERS: ATTEND Physician Assistant
DX: I50.42 Chronic combined systolic (congestive) and diastolic (congestive) heart failure (principal)

== ENCOUNTER → 2021-06-05 | Outpatient (CLI) | payer MEDICARE ==
[2021-06-05 13:50] LABS: ALBUMIN 3.6 GM/DL (3.2-5.2); BILIRUBIN,TOTAL 0.4 MG/DL (0.2-1.0); CALCIUM LEVEL 8.9 MG/DL (8.8-10.2); CHOLESTEROL RISK RATIO 3.352 (<5); CREATININE FOR GFR 2.7 MG/DL (0.70-1.30); GLOMERULAR FILTRATION RATE 24.6 (>42); MAGNESIUM LEVEL 2.4 MG/DL (1.8-2.4); POTASSIUM SERUM 4.6 MEQ/L (3.5-5.1); TOTAL PROTEIN 6.9 GM/DL (6.4-8.2)
[2021-06-05 13:56] LABS: PTH INTACT 139.4 PG/ML (18.5-88.0)
[2021-06-05 13:59] LABS: CREATININE, URINE 28.8 MG/DL; MALB URINE SIEMENS 9.1 MG/L; MAU/CREAT RATIO 31.5 MCG/MG (0.0-30.0)
== END ==
LOC: M PLALAB 09:45
PROVIDERS: ATTEND Internal Medicine
DX: I10 Essential (primary) hypertension (principal)

== ENCOUNTER → 2021-06-16 | Outpatient (CLI) | payer MEDICARE ==
[2021-06-16 14:16] LABS: CALCIUM LEVEL 9.2 MG/DL (8.8-10.2); CREATININE FOR GFR 2.82 MG/DL (0.70-1.30); GLOMERULAR FILTRATION RATE 23.4 (>42); MAGNESIUM LEVEL 2.3 MG/DL (1.8-2.4); POTASSIUM SERUM 4.5 MEQ/L (3.5-5.1)
== END ==
LOC: M PLALAB 08:55
PROVIDERS: ATTEND Physician Assistant
DX: I50.42 Chronic combined systolic (congestive) and diastolic (congestive) heart failure (principal)

== ENCOUNTER → 2021-09-08 | Outpatient (CLI) | payer MEDICARE ==
[2021-09-08 17:19] LABS: ALBUMIN 3.8 GM/DL (3.2-5.2); BILIRUBIN,TOTAL 0.5 MG/DL (0.2-1.0); CALCIUM LEVEL 9.1 MG/DL (8.8-10.2); CREATININE FOR GFR 2.31 MG/DL (0.70-1.30); GLOMERULAR FILTRATION RATE 29.4 (>42); POTASSIUM SERUM 4.9 MEQ/L (3.5-5.1); TOTAL PROTEIN 7.4 GM/DL (6.4-8.2)
[2021-09-09 01:02] LABS: HEMOGLOBIN A1c 9.4 %
== END ==
LOC: M PLALAB 09:34
PROVIDERS: ATTEND Internal Medicine
DX: E11.51 Type 2 diabetes mellitus with diabetic peripheral angiopathy without gangrene (principal)

== ENCOUNTER → 2021-09-22 | Outpatient (CLI) | payer MEDICARE ==
[~2021-09-22] MED LIST changes: +ALLO100T PO; +ASPI81TA26 PO; +CARV25TA PO; +FERR324T21 PO; +OZEM2INJ SC; +ROCA0.25 PO; +SEMA2PEN SQ; +TORS100T PO
[2021-09-22 14:34] LABS: CALCIUM LEVEL 9.3 MG/DL (8.8-10.2); CREATININE FOR GFR 4.66 MG/DL (0.70-1.30); GLOMERULAR FILTRATION RATE 13.1 (>42); MAGNESIUM LEVEL 2.6 MG/DL (1.8-2.4); POTASSIUM SERUM 4.7 MEQ/L (3.5-5.1)
== END ==
LOC: M PLALAB 08:44
PROVIDERS: ATTEND Physician Assistant
DX: I50.42 Chronic combined systolic (congestive) and diastolic (congestive) heart failure (principal)

== ENCOUNTER → 2021-09-25 | Outpatient (CLI) | payer MEDICARE ==
[2021-09-25 18:52] LABS: CALCIUM LEVEL 9.3 MG/DL (8.8-10.2); CREATININE FOR GFR 5.51 MG/DL (0.70-1.30); GLOMERULAR FILTRATION RATE 10.8 (>42); POTASSIUM SERUM 4.4 MEQ/L (3.5-5.1)
== END ==
LOC: M PLALAB 15:40
PROVIDERS: ATTEND Physician Assistant
DX: I50.42 Chronic combined systolic (congestive) and diastolic (congestive) heart failure (principal)

== ENCOUNTER 2021-09-26 08:32 | Inpatient (IN) | payer MEDICARE ==
[~2021-09-26] VITALS: Ht 175.3 cm; Wt 105.8 kg
[~2021-09-26 08:32] MED LIST changes: -ALLO100T PO; -ASPI81TA26 PO; -CARV25TA PO; -FERR324T21 PO; -OZEM2INJ SC; -ROCA0.25 PO; -SEMA2PEN SQ; -TORS100T PO
[2021-09-26] MEDS ORDERED: ALLO100T PO (08:44)
[2021-09-26] MEDS ORDERED: OZEM2INJ SC (08:44)
[2021-09-26] MEDS ORDERED: FERR324T21 PO (08:44)
[2021-09-26] MEDS ORDERED: CARV25TA PO (08:44)
[2021-09-26] MEDS ORDERED: ROCA0.25 PO (08:44)
[2021-09-26 09:37] LABS: BASO # 0.1 10^3/uL (0.0-0.2); BASO % 0.6 % (0.0-1.0); EOS # 0.2 10^3/uL (0.0-0.5); HEMOGLOBIN 12.9 g/dl (13.5-17.5); LYMPH # 1.8 10^3/uL (1.5-5.0); MEAN CORPUSCULAR HEMOGLOBIN 29.7 pg (27.0-33.0); MEAN CORPUSCULAR HGB CONC 33.1 g/dl (32.0-36.5); MEAN CORPUSCULAR VOLUME 89.9 fl (80.0-96.0); MONO # 0.6 10^3/uL (0.0-0.8); MONO % 6.3 % (2.0-8.0); NEUTROPHILS # 6.1 10^3/uL (1.5-8.5); NEUTROPHILS % 69.8 % (36.0-66.0); PLATELET COUNT, AUTOMATED 172 10^3/uL (150-450); RED BLOOD COUNT 4.34 10^6/uL (4.30-6.10); WHITE BLOOD COUNT 8.7 10^3/uL (4.0-10.0)
[2021-09-26 09:49] LABS: APPEARANCE, URINE CLEAR (CLEAR); BACTERIA, URINE AUTO NEGATIVE (NEGATIVE); BILIRUBIN, URINE AUTO NEGATIVE (NEGATIVE); BLOOD, URINE BLOOD NEGATIVE (NEGATIVE); COLOR, URINE STRAW (YELLOW); GLUCOSE, URINE (UA) AUTO 3+ mg/dL (NEGATIVE); KETONE, URINE AUTO NEGATIVE (NEGATIVE); LEUKOCYTE ESTERASE, URINE AUTO NEGATIVE (NEGATIVE); MUCUS, URINE SMALL (NEGATIVE); NITRITE, URINE AUTO NEGATIVE (NEGATIVE); PROTEIN, URINE AUTO NEGATIVE (NEGATIVE); RBC, URINE AUTO 0 /HPF (0-3); SPECIFIC GRAVITY URINE AUTO 1.008 (1.002-1.035); SQUAMOUS EPITHELIAL CELL UR AU 0 /HPF (0-6); UROBILINOGEN, URINE AUTO 0.2 mg/dL (0.0-2.0); WBC, URINE AUTO 0 /HPF (0-3)
[2021-09-26 09:54] LABS: VENOUS HCO3 23.6 MEQ/L (23.0-27.0); VENOUS O2 SATURATION 84.3 % (60.0-80.0); VENOUS PARTIAL PRESSURE CO2 39.5 mmHg (38.0-50.0); VENOUS PARTIAL PRESSURE O2 48.6 mmHg (30.0-50.0); VENOUS PH 7.395 UNITS (7.330-7.430); VENOUS STANDARD HCO3 23.3 MEQ/L; VENOUS TOTAL CO2 24.9 MEQ/L (24.0-28.0)
[2021-09-26 10:07] LABS: ALBUMIN 3.6 GM/DL (3.2-5.2); ALT/SGPT 16 U/L (12-78); BILIRUBIN,DIRECT < 0.1 MG/DL (0.0-0.2); BILIRUBIN,TOTAL 0.3 MG/DL (0.2-1.0); BLOOD UREA NITROGEN 108 MG/DL (7-18); CALCIUM LEVEL 9.4 MG/DL (8.8-10.2); CARBON DIOXIDE LEVEL 24 MEQ/L (21-32); CHLORIDE LEVEL 99 MEQ/L (98-107); GLOMERULAR FILTRATION RATE 11.5 (>42); GLUCOSE, FASTING 351 MG/DL (70-100); LIPASE 344 U/L (73-393); POTASSIUM SERUM 4.6 MEQ/L (3.5-5.1); SODIUM LEVEL 137 MEQ/L (136-145); TOTAL PROTEIN 7.1 GM/DL (6.4-8.2)
[2021-09-26 10:16] LABS: RSV AMPLIFICATION NEGATIVE (NEGATIVE)
[2021-09-26] MEDS ORDERED: NS 500 ML IV ONE (11:45)
[2021-09-26] MEDS ORDERED: ASPI81TA26 PO (12:22)
[2021-09-26] MEDS ORDERED: TORS100T PO ×2 (12:23)
[2021-09-26] MEDS ORDERED: SEMA2PEN SQ (12:23)
[2021-09-26] MEDS ORDERED: HOME MED LIST COMPLETE! XX SCH (12:25)
[2021-09-26] MEDS ORDERED: ACETAMINOPHEN TAB 650MG DOSE (2X325MG) PO PRN (12:45)
[2021-09-26] MEDS ORDERED: GLUCOSE 4GM CHEW TABLET PO PRN (12:50)
[2021-09-26] MEDS ORDERED: GLUCAGON INJ 1MG VIAL SC PRN (12:50)
[2021-09-26] MEDS ORDERED: DEXTROSE 50% 50 ML SYRINGE IV PRN (12:50)
[2021-09-26 13:54] LABS: CREATININE,RANDOM URINE 42.9 MG/DL
[2021-09-26 15:06] VITALS: BP 118/79
[2021-09-26] MEDS: INSULIN LISPRO (NovoLOG) PER UNIT SC SCH ×2 (17:41→21:00)
[2021-09-26 18:12] VITALS: BP 118/82
[2021-09-26 20:27] VITALS: BP 144/91
[2021-09-26 20:39] VITALS: BP 132/77
[2021-09-26] MEDS: APIXABAN 5 MG TAB (ELIQUIS) PO SCH (21:20)
[2021-09-26] MEDS: CARVedilol 12.5 MG TAB PO SCH (21:21)
[2021-09-27 01:14] VITALS: BP 116/60
[2021-09-27 06:50] VITALS: BP 167/69
[2021-09-27 07:32] LABS: HEMATOCRIT 37.3 % (42.0-52.0); HEMOGLOBIN 12.3 g/dl (13.5-17.5); MEAN CORPUSCULAR HEMOGLOBIN 29.4 pg (27.0-33.0); PLATELET COUNT, AUTOMATED 168 10^3/uL (150-450); RED BLOOD COUNT 4.19 10^6/uL (4.30-6.10); WHITE BLOOD COUNT 9.3 10^3/uL (4.0-10.0)
[2021-09-27 07:57] LABS: ALBUMIN 3.5 GM/DL (3.2-5.2); BILIRUBIN,TOTAL 0.3 MG/DL (0.2-1.0); CREATININE FOR GFR 3.78 MG/DL (0.70-1.30); GLOMERULAR FILTRATION RATE 16.7 (>42); POTASSIUM SERUM 3.8 MEQ/L (3.5-5.1); TOTAL PROTEIN 6.7 GM/DL (6.4-8.2)
[2021-09-27 07:58] LABS: MAGNESIUM LEVEL 2.1 MG/DL (1.8-2.4)
[2021-09-27] MEDS: ASPIRIN 81MG ENTERIC TABLET PO SCH (08:36)
[2021-09-27] MEDS: INSULIN LISPRO (NovoLOG) PER UNIT SC SCH ×4 (08:36→20:04)
[2021-09-27] MEDS: APIXABAN 5 MG TAB (ELIQUIS) PO SCH ×2 (08:36→20:03)
[2021-09-27] MEDS: CARVedilol 12.5 MG TAB PO SCH ×2 (08:36→20:04)
[2021-09-27 10:00] VITALS: BP 144/64
[2021-09-27] MEDS: **hydrALAZINE HCL** 25 MG TAB PO SCH ×2 (12:39→20:03)
[2021-09-27 14:00] VITALS: BP 145/63
[2021-09-27 18:00] VITALS: BP 165/86
[2021-09-27 22:00] VITALS: BP 163/83
[2021-09-28 06:00] VITALS: BP 130/76
[2021-09-28 06:56] LABS: ALBUMIN 3.2 GM/DL (3.2-5.2); CALCIUM LEVEL 8.9 MG/DL (8.8-10.2); CREATININE FOR GFR 2.89 MG/DL (0.70-1.30); GLOMERULAR FILTRATION RATE 22.7 (>42); PHOSPHORUS LEVEL 4.1 MG/DL (2.5-4.9); POTASSIUM SERUM 3.9 MEQ/L (3.5-5.1)
[2021-09-28] MEDS: INSULIN LISPRO (NovoLOG) PER UNIT SC SCH (08:24)
[2021-09-28 08:25] VITALS: BP 130/76
[2021-09-28] MEDS: APIXABAN 5 MG TAB (ELIQUIS) PO SCH (08:25)
[2021-09-28] MEDS: CARVedilol 12.5 MG TAB PO SCH (08:25)
[2021-09-28] MEDS: ASPIRIN 81MG ENTERIC TABLET PO SCH (08:25)
[2021-09-28] MEDS: **hydrALAZINE HCL** 25 MG TAB PO SCH (08:25)
[2021-09-28] MEDS ORDERED: HYDR25TA PO (11:34)
[2021-09-29] MEDS ORDERED: TORSEMIDE 20 MG TAB PO SCH (09:00)
== END 2021-09-28 12:16 | disposition home or self-care (01) | DRG 683 ==
LOC: M ED 08:32 → M ED INP 12:34 → M MS5PR 14:41
PROVIDERS: ADMIT Family Medicine; ATTEND Family Medicine
DX: N17.9 Acute kidney failure, unspecified (principal); I50.32 Chronic diastolic (congestive) heart failure; I13.0 Hypertensive heart and chronic kidney disease with heart failure and stage 1 through stage 4 chronic kidney disease, or unspecified chronic kidney disease; I25.10 Atherosclerotic heart disease of native coronary artery without angina pectoris; N18.4 Chronic kidney disease, stage 4 (severe); I25.5 Ischemic cardiomyopathy; E11.51 Type 2 diabetes mellitus with diabetic peripheral angiopathy without gangrene; E11.22 Type 2 diabetes mellitus with diabetic chronic kidney disease; E11.42 Type 2 diabetes mellitus with diabetic polyneuropathy; E11.65 Type 2 diabetes mellitus with hyperglycemia; D64.9 Anemia, unspecified; Z95.1 Presence of aortocoronary bypass graft; Z98.41 Cataract extraction status, right eye; Z98.42 Cataract extraction status, left eye; Z95.820 Peripheral vascular angioplasty status with implants and grafts; Z87.891 Personal history of nicotine dependence

== ENCOUNTER → 2021-10-29 | Outpatient (CLI) | payer MEDICARE ==
[~2021-10-29] MED LIST changes: +ALLO100T PO; +ASPI81TA26 PO; +CARV25TA PO; +FERR324T21 PO; +HYDR25TA PO; +OZEM2INJ SC; +ROCA0.25 PO; +SEMA2PEN SQ; +TORS100T PO
[2021-10-29 14:01] LABS: ALBUMIN 3.5 GM/DL (3.2-5.2); CALCIUM LEVEL 9.1 MG/DL (8.8-10.2); CREATININE FOR GFR 2.03 MG/DL (0.70-1.30); GLOMERULAR FILTRATION RATE 34.2 (>42); PHOSPHORUS LEVEL 3.1 MG/DL (2.5-4.9); POTASSIUM SERUM 4.4 MEQ/L (3.5-5.1)
== END ==
LOC: M PLALAB 10:38
PROVIDERS: ATTEND Internal Medicine Hematology
DX: N18.4 Chronic kidney disease, stage 4 (severe) (principal)

== ENCOUNTER → 2021-12-29 | Outpatient (CLI) | payer MEDICARE ==
[2021-12-29 15:23] LABS: CALCIUM LEVEL 8.6 MG/DL (8.8-10.2); CREATININE FOR GFR 1.66 MG/DL (0.70-1.30); GLOMERULAR FILTRATION RATE 43.1 (>42); MAGNESIUM LEVEL 2.4 MG/DL (1.8-2.4); POTASSIUM SERUM 4.4 MEQ/L (3.5-5.1)
== END ==
LOC: M PLALAB 10:12
PROVIDERS: ATTEND Physician Assistant
DX: I50.42 Chronic combined systolic (congestive) and diastolic (congestive) heart failure (principal)

== ENCOUNTER → 2022-01-05 | Outpatient (CLI) | payer MEDICARE ==
[2022-01-05 16:26] LABS: CALCIUM LEVEL 9.3 MG/DL (8.8-10.2); CREATININE FOR GFR 2.2 MG/DL (0.70-1.30); GLOMERULAR FILTRATION RATE 31.1 (>42); MAGNESIUM LEVEL 2.5 MG/DL (1.8-2.4); POTASSIUM SERUM 3.7 MEQ/L (3.5-5.1)
== END ==
LOC: M PLALAB 09:19
PROVIDERS: ATTEND Physician Assistant
DX: I50.42 Chronic combined systolic (congestive) and diastolic (congestive) heart failure (principal)

== ENCOUNTER → 2022-01-14 | Outpatient (CLI) | payer MEDICARE ==
[2022-01-14 10:18] LABS: HEMATOCRIT 38.9 % (42.0-52.0); HEMOGLOBIN 12.3 g/dl (13.5-17.5); MEAN CORPUSCULAR HEMOGLOBIN 28.2 pg (27.0-33.0); MEAN CORPUSCULAR HGB CONC 31.6 g/dl (32.0-36.5); MEAN CORPUSCULAR VOLUME 89.2 fl (80.0-96.0); PLATELET COUNT, AUTOMATED 216 10^3/uL (150-450); RED BLOOD COUNT 4.36 10^6/uL (4.30-6.10); WHITE BLOOD COUNT 10.8 10^3/uL (4.0-10.0)
[2022-01-14 11:19] LABS: ALBUMIN 3.7 G/DL (3.2-5.2); BILIRUBIN,TOTAL 0.4 MG/DL (0.3-1.2); CALCIUM LEVEL 9.3 MG/DL (8.3-10.6); CHOLESTEROL RISK RATIO 2.83 (<5); CREATININE FOR GFR 1.77 MG/DL (0.70-1.30); HDL CHOLESTEROL 33.1 MG/DL (>40); LDL CHOLESTEROL 37.3 MG/DL (<100); MAGNESIUM LEVEL 2.4 MG/DL (1.8-2.4); POTASSIUM SERUM 3.9 MMOL/L (3.5-5.1)
== END ==
LOC: M PLALAB 08:29
PROVIDERS: ATTEND Physician Assistant
DX: I50.42 Chronic combined systolic (congestive) and diastolic (congestive) heart failure (principal)

== ENCOUNTER → 2022-01-26 | Outpatient (CLI) | payer MEDICARE ==
[2022-01-26 16:24] LABS: POTASSIUM SERUM 4.6 MMOL/L (3.5-5.1)
[2022-01-26 16:29] LABS: CALCIUM LEVEL 8.6 MG/DL (8.3-10.6)
[2022-01-26 16:32] LABS: CREATININE FOR GFR 1.57 MG/DL (0.70-1.30)
== END ==
LOC: M PLALAB 09:22
PROVIDERS: ATTEND Physician Assistant
DX: I50.42 Chronic combined systolic (congestive) and diastolic (congestive) heart failure (principal)

== ENCOUNTER → 2022-03-16 | Outpatient (CLI) | payer MEDICARE ==
[2022-03-16 11:36] LABS: MAGNESIUM LEVEL 2.1 MG/DL (1.8-2.4)
[2022-03-16 11:37] LABS: CALCIUM LEVEL 9.2 MG/DL (8.3-10.6); CREATININE FOR GFR 1.88 MG/DL (0.70-1.30); GLOMERULAR FILTRATION RATE 37.2 (>42); POTASSIUM SERUM 4.4 MMOL/L (3.5-5.1)
== END ==
LOC: M PLALAB 08:53
PROVIDERS: ATTEND Physician Assistant
DX: I50.42 Chronic combined systolic (congestive) and diastolic (congestive) heart failure (principal)

== ENCOUNTER → 2022-03-25 | Outpatient (CLI) | payer MEDICARE ==
[2022-03-25 11:44] LABS: HEMOGLOBIN 12.5 g/dl (13.5-17.5); MEAN CORPUSCULAR HGB CONC 32.1 g/dl (32.0-36.5); MEAN CORPUSCULAR VOLUME 87.2 fl (80.0-96.0); PLATELET COUNT, AUTOMATED 215 10^3/uL (150-450); RED BLOOD COUNT 4.47 10^6/uL (4.30-6.10); WHITE BLOOD COUNT 8.6 10^3/uL (4.0-10.0)
[2022-03-25 12:12] LABS: CREATININE, URINE 105.6 MG/DL; MAU/CREAT RATIO 5.6 MCG/MG (0.0-30.0)
[2022-03-25 12:16] LABS: C REACTIVE PROTEIN QUANTITATIV 0.6 MG/DL (<1.0)
[2022-03-25 12:18] LABS: ALBUMIN 3.6 G/DL (3.2-5.2); BILIRUBIN,TOTAL 0.4 MG/DL (0.3-1.2); CALCIUM LEVEL 8.7 MG/DL (8.3-10.6); CHOLESTEROL RISK RATIO 3.58 (<5); CREATININE FOR GFR 3.77 MG/DL (0.70-1.30); FREE T4 1.25 NG/DL (0.89-1.76); GLOMERULAR FILTRATION RATE 16.7 (>42); HDL CHOLESTEROL 27.3 MG/DL (>40); LDL CHOLESTEROL 35.5 MG/DL (<100); POTASSIUM SERUM 4.3 MMOL/L (3.5-5.1); THYROID STIMULATING HORMONE 1.897 uIU/ML (0.55-4.78); TOTAL 25(OH) VITAMIN D 31.3 NG/ML (20.0-100.0); TOTAL PROTEIN 7.1 G/DL (5.7-8.2)
[2022-03-25 12:48] LABS: HEMOGLOBIN A1c 11.2 % (4.0-6.0)
== END ==
LOC: M PLALAB 08:13
PROVIDERS: ATTEND Internal Medicine Hematology
DX: E11.51 Type 2 diabetes mellitus with diabetic peripheral angiopathy without gangrene (principal)

== ENCOUNTER → 2022-03-30 | Outpatient (CLI) | payer MEDICARE ==
[2022-03-30 10:56] LABS: ALBUMIN 3.5 G/DL (3.2-5.2); CALCIUM LEVEL 9.5 MG/DL (8.3-10.6); CREATININE FOR GFR 1.93 MG/DL (0.70-1.30); GLOMERULAR FILTRATION RATE 36.1 (>42); PHOSPHORUS LEVEL 3.4 MG/DL (2.4-5.1); POTASSIUM SERUM 4.7 MMOL/L (3.5-5.1)
== END ==
LOC: M PLALAB 08:26
PROVIDERS: ATTEND Internal Medicine Hematology
DX: N18.4 Chronic kidney disease, stage 4 (severe) (principal)

== ENCOUNTER → 2022-04-27 | Outpatient (CLI) | payer MEDICARE ==
[2022-04-27 11:12] LABS: ALBUMIN 3.4 G/DL (3.2-5.2); CALCIUM LEVEL 8.6 MG/DL (8.3-10.6); CREATININE FOR GFR 1.92 MG/DL (0.70-1.30); GLOMERULAR FILTRATION RATE 36.3 (>42); MAGNESIUM LEVEL 2.3 MG/DL (1.8-2.4); PHOSPHORUS LEVEL 3.5 MG/DL (2.4-5.1)
== END ==
LOC: M PLALAB 08:45
PROVIDERS: ATTEND Physician Assistant
DX: I50.42 Chronic combined systolic (congestive) and diastolic (congestive) heart failure (principal)

== ENCOUNTER → 2022-06-17 | Outpatient (CLI) | payer MEDICARE ==
[2022-06-17 10:59] LABS: HEMATOCRIT 42.4 % (42.0-52.0); HEMOGLOBIN 13.4 g/dl (13.5-17.5); MEAN CORPUSCULAR HEMOGLOBIN 28.4 pg (27.0-33.0); MEAN CORPUSCULAR HGB CONC 31.6 g/dl (32.0-36.5); MEAN CORPUSCULAR VOLUME 89.8 fl (80.0-96.0); PLATELET COUNT, AUTOMATED 293 10^3/uL (150-450); RED BLOOD COUNT 4.72 10^6/uL (4.30-6.10); WHITE BLOOD COUNT 9.8 10^3/uL (4.0-10.0)
[2022-06-17 11:22] LABS: HEMOGLOBIN A1c 8.7 % (4.0-6.0)
[2022-06-17 11:28] LABS: CREATININE, URINE 119.3 MG/DL; MAU/CREAT RATIO 23.4 MCG/MG (0.0-30.0)
[2022-06-17 11:29] LABS: ALBUMIN 3.2 G/DL (3.2-5.2); BILIRUBIN,TOTAL 0.4 MG/DL (0.3-1.2); CREATININE FOR GFR 2.02 MG/DL (0.70-1.30); GLOMERULAR FILTRATION RATE 34.3 (>42); POTASSIUM SERUM 4.5 MMOL/L (3.5-5.1); TOTAL PROTEIN 6.6 G/DL (5.7-8.2)
== END ==
LOC: M PLALAB 08:14
PROVIDERS: ATTEND Internal Medicine Hematology
DX: E11.51 Type 2 diabetes mellitus with diabetic peripheral angiopathy without gangrene (principal)

== ENCOUNTER → 2022-08-24 | Outpatient (CLI) | payer MEDICARE ==
[2022-08-24 11:45] LABS: CREATININE FOR GFR 1.64 MG/DL (0.70-1.30); GLOMERULAR FILTRATION RATE 43.6 (>42); MAGNESIUM LEVEL 1.8 MG/DL (1.8-2.4)
== END ==
LOC: M PLALAB 09:28
PROVIDERS: ATTEND Physician Assistant
DX: I50.42 Chronic combined systolic (congestive) and diastolic (congestive) heart failure (principal)

== ENCOUNTER → 2022-09-23 | Outpatient (CLI) | payer MEDICARE ==
[2022-09-23 11:04] LABS: ALBUMIN 3.5 G/DL (3.2-5.2); CALCIUM LEVEL 9.3 MG/DL (8.3-10.6); CREATININE FOR GFR 1.61 MG/DL (0.70-1.30); GLOMERULAR FILTRATION RATE 44.5 (>42); PHOSPHORUS LEVEL 4.1 MG/DL (2.4-5.1); POTASSIUM SERUM 5.3 MMOL/L (3.5-5.1)
[2022-09-23 11:05] LABS: HEMOGLOBIN A1c 7.2 % (4.0-6.0); PERCENT SATURATION 14.6 % (19.7-50.0)
== END ==
LOC: M PLALAB 08:47
PROVIDERS: ATTEND Internal Medicine Hematology
DX: E11.51 Type 2 diabetes mellitus with diabetic peripheral angiopathy without gangrene (principal)

== ENCOUNTER 2023-01-06 11:00 | Day surgery (SDC) | payer MEDICARE ==
[~2023-01-06] VITALS: Ht 177.8 cm; Wt 106.0 kg
[~2023-01-06 11:00] MED LIST changes: +HYDR-3910 PO; +NS 1,000 ML IV ONE; +TORS5TAB2 PO
[2023-01-06] MEDS ORDERED: LIDOCAINE 2% 100MG/5ML SDV (FOR ANES.) As Ordered ONE (12:35)
[2023-01-06] MEDS ORDERED: propofoL 200 MG/20 ML VIAL As Ordered ONE ×2 (12:35→12:45)
[2023-01-06] MEDS ORDERED: fentaNYL 100 MCG/2 ML INJECTION As Ordered ONE (12:35)
[2023-01-06 13:17] VITALS: TEMP 96.8
[2023-01-06 13:36] VITALS: BP 184/92; O2SAT 98
== END 2023-01-06 13:36 | disposition home or self-care (01) ==
LOC: M OPP 11:00
PROVIDERS: ATTEND Internal Medicine Gastroenterology
DX: D12.2 Benign neoplasm of ascending colon (principal); K64.0 First degree hemorrhoids; K57.30 Diverticulosis of large intestine without perforation or abscess without bleeding; K29.50 Unspecified chronic gastritis without bleeding; K22.70 Barrett's esophagus without dysplasia; K31.A19 Gastric intestinal metaplasia without dysplasia, unspecified site; K22.89 Other specified disease of esophagus; K31.89 Other diseases of stomach and duodenum; I10 Essential (primary) hypertension; E11.9 Type 2 diabetes mellitus without complications; K21.9 Gastro-esophageal reflux disease without esophagitis; Z79.01 Long term (current) use of anticoagulants; Z79.82 Long term (current) use of aspirin; Z79.84 Long term (current) use of oral hypoglycemic drugs; Z79.85 Long-term (current) use of injectable non-insulin antidiabetic drugs; Z79.899 Other long term (current) drug therapy
CPT/HCPCS: 43239; 45380; 45385; 88305; J3010

== ENCOUNTER → 2023-03-24 | Outpatient (CLI) | payer MEDICARE ==
[~2023-03-24] MED LIST changes: -NS 1,000 ML IV ONE
[2023-03-24 16:34] LABS: HEMATOCRIT 42.9 % (42.0-52.0); HEMOGLOBIN 13.7 g/dl (13.5-17.5); MEAN CORPUSCULAR HEMOGLOBIN 29.2 pg (27.0-33.0); MEAN CORPUSCULAR HGB CONC 31.9 g/dl (32.0-36.5); MEAN CORPUSCULAR VOLUME 91.5 fl (80.0-96.0); PLATELET COUNT, AUTOMATED 169 10^3/uL (150-450); RED BLOOD COUNT 4.69 10^6/uL (4.30-6.10); WHITE BLOOD COUNT 8.9 10^3/uL (4.0-10.0)
[2023-03-24 16:52] LABS: HEMOGLOBIN A1c 7.8 % (4.0-6.0)
[2023-03-24 17:02] LABS: CREATININE, URINE 100.6 MG/DL; MAU/CREAT RATIO 54.6 MCG/MG (0.0-30.0)
[2023-03-24 17:05] LABS: C REACTIVE PROTEIN QUANTITATIV < 0.40 MG/DL (<1.0)
[2023-03-24 17:07] LABS: ALBUMIN 3.8 G/DL (3.2-5.2); ALKALINE PHOSPHATASE 60 U/L (46-116); ALT/SGPT 13 U/L (7.0-40); AST/SGOT 12 U/L (<34); BILIRUBIN,TOTAL 0.7 MG/DL (0.3-1.2); BLOOD UREA NITROGEN 54 MG/DL (9-23); CALCIUM LEVEL 9.8 MG/DL (8.3-10.6); CARBON DIOXIDE LEVEL 30 MMOL/L (20-31); CHLORIDE LEVEL 108 MMOL/L (98-107); CHOLESTEROL LEVEL 100 MG/DL (<200); CHOLESTEROL RISK RATIO 2.61 (<5); CREATININE FOR GFR 2.19 MG/DL (0.70-1.30); FREE T4 1.14 NG/DL (0.89-1.76); GLOMERULAR FILTRATION RATE 31.1 (>42); GLUCOSE, FASTING 175 MG/DL (74-106); HDL CHOLESTEROL 38.3 MG/DL (>40); IRON (FE) 62 UG/DL (65-175); LDL CHOLESTEROL 47.7 MG/DL (<100); NON-HDL-C 61.7 MG/DL; PERCENT SATURATION 17.2 % (19.7-50.0); POTASSIUM SERUM 5.5 MMOL/L (3.5-5.1); PSA SCREENING 1.53 NG/ML (< 4.00); SODIUM LEVEL 138 MMOL/L (136-145); TOTAL IRON BINDING CAPACITY 361 UG/DL (250-425); TRIGLYCERIDES LEVEL 70 MG/DL (<150)
[2023-03-24 17:08] LABS: THYROID STIMULATING HORMONE 3.259 uIU/ML (0.55-4.78); TOTAL 25(OH) VITAMIN D 32.4 NG/ML (20.0-100.0)
[2023-03-24 17:09] LABS: VITAMIN B12 LEVEL 495 PG/ML (211-911)
== END ==
LOC: M PLALAB 09:00
PROVIDERS: ATTEND Internal Medicine Hematology
DX: E11.9 Type 2 diabetes mellitus without complications (principal); E61.1 Iron deficiency; Z12.5 Encounter for screening for malignant neoplasm of prostate; Z79.899 Other long term (current) drug therapy
CPT/HCPCS: 36415; 80053; 80061; 82043; 82306; 82607; 83036; 83525; 83550; 84439; 84443; 85027; 86140; G0103

== ENCOUNTER → 2023-06-22 | Outpatient (REF) | payer MEDICARE ==
[~2023-06-22] MED LIST changes: -HYDR-3910 PO; -HYDR25TA PO; +HYDR25TA87 PO; +HYDR25TA88 PO
== END ==
LOC: M SFHCPLAZ 18:19
PROVIDERS: ATTEND Student in an Organized Health Care Education/Training Program
DX: C44.41 Basal cell carcinoma of skin of scalp and neck (principal)

== ENCOUNTER → 2023-06-28 | Outpatient (CLI) | payer MEDICARE ==
[2023-06-28 13:00] LABS: HEMATOCRIT 41.9 % (42.0-52.0); HEMOGLOBIN 13.6 g/dl (13.5-17.5); MEAN CORPUSCULAR HEMOGLOBIN 29.9 pg (27.0-33.0); MEAN CORPUSCULAR HGB CONC 32.5 g/dl (32.0-36.5); MEAN CORPUSCULAR VOLUME 92.1 fl (80.0-96.0); PLATELET COUNT, AUTOMATED 132 10^3/uL (150-450); RED BLOOD COUNT 4.55 10^6/uL (4.30-6.10)
[2023-06-28 13:18] LABS: HEMOGLOBIN A1c 7.6 % (4.0-6.0)
[2023-06-28 13:20] LABS: CREATININE, URINE 88.5 MG/DL; MAU/CREAT RATIO 45.1 MCG/MG (0.0-30.0)
[2023-06-28 13:22] LABS: C REACTIVE PROTEIN QUANTITATIV < 0.40 MG/DL (<1.0)
[2023-06-28 13:25] LABS: TOTAL 25(OH) VITAMIN D 23.2 NG/ML (20.0-100.0)
[2023-06-28 13:26] LABS: THYROID STIMULATING HORMONE 2.229 uIU/ML (0.55-4.78)
[2023-06-28 13:29] LABS: FREE T4 1.11 NG/DL (0.89-1.76); VITAMIN B12 LEVEL 398 PG/ML (211-911)
[2023-06-28 13:30] LABS: ALBUMIN 3.4 G/DL (3.2-5.2); ALKALINE PHOSPHATASE 56 U/L (46-116); ALT/SGPT 14 U/L (7.0-40); AST/SGOT 13 U/L (<34); BILIRUBIN,TOTAL 0.7 MG/DL (0.3-1.2); BLOOD UREA NITROGEN 39 MG/DL (9-23); CALCIUM LEVEL 8.6 MG/DL (8.3-10.6); CARBON DIOXIDE LEVEL 28 MMOL/L (20-31); CHLORIDE LEVEL 106 MMOL/L (98-107); CHOLESTEROL LEVEL 94 MG/DL (<200); CHOLESTEROL RISK RATIO 2.62 (<5); CREATININE FOR GFR 1.67 MG/DL (0.70-1.30); GLOMERULAR FILTRATION RATE 42.6 (>42); GLUCOSE, FASTING 166 MG/DL (74-106); HDL CHOLESTEROL 35.8 MG/DL (>40); LDL CHOLESTEROL 43.8 MG/DL (<100); NON-HDL-C 58.2 MG/DL; POTASSIUM SERUM 5.3 MMOL/L (3.5-5.1); SODIUM LEVEL 141 MMOL/L (136-145); TOTAL PROTEIN 6.4 G/DL (5.7-8.2); TRIGLYCERIDES LEVEL 72 MG/DL (<150)
== END ==
LOC: M PLALAB 09:25
PROVIDERS: ATTEND Internal Medicine Hematology
DX: I50.42 Chronic combined systolic (congestive) and diastolic (congestive) heart failure (principal)

== ENCOUNTER → 2023-11-02 | Outpatient (CLI) | payer MEDICARE ==
[2023-11-02 12:53] LABS: BASO % 0.4 % (0.0-1.0); EOS # 0.3 10^3/uL (0.0-0.5); EOS % 3.3 % (0.0-3.0); HEMATOCRIT 40.4 % (42.0-52.0); HEMOGLOBIN 12.9 g/dl (13.5-17.5); LYMPH # 1.5 10^3/uL (1.5-5.0); LYMPH % 18.7 % (24.0-44.0); MEAN CORPUSCULAR HEMOGLOBIN 29.2 pg (27.0-33.0); MEAN CORPUSCULAR HGB CONC 31.9 g/dl (32.0-36.5); MEAN CORPUSCULAR VOLUME 91.4 fl (80.0-96.0); MONO # 0.6 10^3/uL (0.0-0.8); MONO % 6.7 % (2.0-8.0); NEUTROPHILS # 5.8 10^3/uL (1.5-8.5); NEUTROPHILS % 70.5 % (36.0-66.0); PLATELET COUNT, AUTOMATED 167 10^3/uL (150-450); RED BLOOD COUNT 4.42 10^6/uL (4.30-6.10); WHITE BLOOD COUNT 8.3 10^3/uL (4.0-10.0)
[2023-11-02 13:17] LABS: C REACTIVE PROTEIN QUANTITATIV < 0.40 MG/DL (<1.0)
[2023-11-02 13:18] LABS: ALBUMIN 3.6 G/DL (3.2-5.2); ALKALINE PHOSPHATASE 73 U/L (46-116); ALT/SGPT 29 U/L (7.0-40); AST/SGOT 15 U/L (<34); BILIRUBIN,TOTAL 0.6 MG/DL (0.3-1.2); BLOOD UREA NITROGEN 29 MG/DL (9-23); CALCIUM LEVEL 9.2 MG/DL (8.3-10.6); CARBON DIOXIDE LEVEL 28 MMOL/L (20-31); CHLORIDE LEVEL 106 MMOL/L (98-107); CHOLESTEROL LEVEL 96 MG/DL (<200); CHOLESTEROL RISK RATIO 3.05 (<5); CREATININE FOR GFR 1.46 MG/DL (0.70-1.30); GLOMERULAR FILTRATION RATE 49.7 (>42); GLUCOSE, FASTING 211 MG/DL (74-106); HDL CHOLESTEROL 31.4 MG/DL (>40); MAU/CREAT RATIO 8.8 MCG/MG (0.0-30.0); NON-HDL-C 64.6 MG/DL; POTASSIUM SERUM 5.1 MMOL/L (3.5-5.1); SODIUM LEVEL 139 MMOL/L (136-145); TOTAL PROTEIN 6.7 G/DL (5.7-8.2); TRIGLYCERIDES LEVEL 68 MG/DL (<150)
[2023-11-02 13:21] LABS: HEMOGLOBIN A1c 8.4 % (4.0-6.0)
[2023-11-02 13:22] LABS: THYROID STIMULATING HORMONE 1.973 uIU/ML (0.55-4.78); TOTAL 25(OH) VITAMIN D 38.4 NG/ML (20.0-100.0)
[2023-11-02 13:23] LABS: FREE T4 1.25 NG/DL (0.89-1.76); VITAMIN B12 LEVEL 646 PG/ML (211-911)
== END ==
LOC: M PLALAB 09:17
PROVIDERS: ATTEND Internal Medicine Hematology
DX: I10 Essential (primary) hypertension (principal)

== ENCOUNTER → 2023-12-13 | Outpatient (CLI) | payer MEDICARE ==
[2023-12-13 15:10] LABS: CALCIUM LEVEL 9.5 MG/DL (8.3-10.6); CREATININE FOR GFR 1.49 MG/DL (0.70-1.30); GLOMERULAR FILTRATION RATE 48.6 (>42); POTASSIUM SERUM 5.2 MMOL/L (3.5-5.1)
== END ==
LOC: M PLALAB 09:58
PROVIDERS: ATTEND Physician Assistant
DX: I50.42 Chronic combined systolic (congestive) and diastolic (congestive) heart failure (principal)

== ENCOUNTER → 2024-06-12 | Outpatient (CLI) | payer MEDICARE ==
[2024-06-12 13:28] LABS: BASO # 0.1 10^3/uL (0.0-0.2); BASO % 0.6 % (0.0-1.0); EOS # 0.2 10^3/uL (0.0-0.5); EOS % 2.2 % (0.0-3.0); HEMATOCRIT 41.2 % (42.0-52.0); HEMOGLOBIN 13.4 g/dl (13.5-17.5); LYMPH # 1.9 10^3/uL (1.5-5.0); LYMPH % 21.6 % (24.0-44.0); MEAN CORPUSCULAR HGB CONC 32.5 g/dl (32.0-36.5); MEAN CORPUSCULAR VOLUME 92.2 fl (80.0-96.0); MONO # 0.7 10^3/uL (0.0-0.8); MONO % 7.9 % (2.0-8.0); NEUTROPHILS # 5.8 10^3/uL (1.5-8.5); NEUTROPHILS % 67.5 % (36.0-66.0); PLATELET COUNT, AUTOMATED 145 10^3/uL (150-450); RED BLOOD COUNT 4.47 10^6/uL (4.30-6.10); WHITE BLOOD COUNT 8.6 10^3/uL (4.0-10.0)
[2024-06-12 13:29] LABS: CREATININE FOR GFR 1.77 MG/DL (0.70-1.30); GLOMERULAR FILTRATION RATE 38.6 (>42); POTASSIUM SERUM 4.5 MMOL/L (3.5-5.1)
== END ==
LOC: M PLALAB 10:43
PROVIDERS: ATTEND Internal Medicine Cardiovascular Disease
DX: I48.11 Longstanding persistent atrial fibrillation (principal); Z79.01 Long term (current) use of anticoagulants; I42.0 Dilated cardiomyopathy

== ENCOUNTER → 2024-09-19 | Outpatient (CLI) | payer MEDICARE ==
[~2024-09-19] MED LIST changes: +LISI40TA10 PO; -LISI40TA4 PO
[2024-09-19 10:45] LABS: BASO # 0.1 10^3/uL (0.0-0.2); BASO % 0.7 % (0.0-1.0); EOS # 0.2 10^3/uL (0.0-0.5); EOS % 2.5 % (0.0-3.0); LYMPH # 1.9 10^3/uL (1.5-5.0); LYMPH % 22.9 % (24.0-44.0); MONO # 0.6 10^3/uL (0.0-0.8); MONO % 6.6 % (2.0-8.0); NEUTROPHILS # 5.7 10^3/uL (1.5-8.5); NEUTROPHILS % 66.9 % (36.0-66.0); PLATELET COUNT, AUTOMATED 148 10^3/uL (150-450)
[2024-09-19 11:10] LABS: CREATININE, URINE 31.0 MG/DL; MALB URINE SIEMENS 15.0 MG/L; MAU/CREAT RATIO 48.3 MCG/MG (0.0-30.0)
[2024-09-19 11:13] LABS: ALT/SGPT 20.0 U/L (7.0-40); AST/SGOT 22.0 U/L (<34); CALCIUM LEVEL 8.7 MG/DL (8.3-10.6); CARBON DIOXIDE LEVEL 28.0 MMOL/L (20-31); CHLORIDE LEVEL 101.0 MMOL/L (98-107); CHOLESTEROL LEVEL 105.0 MG/DL (<200); CHOLESTEROL RISK RATIO 3.11 (<5); CREATININE FOR GFR 2.03 MG/DL (0.70-1.30); GLOMERULAR FILTRATION RATE 32.7 (>42); IRON (FE) 63.0 UG/DL (65-175); LDL CHOLESTEROL 48.1 MG/DL (<100); NON-HDL-C 71.3 MG/DL; PERCENT SATURATION 19.4 % (19.7-50.0); POTASSIUM SERUM 4.2 MMOL/L (3.5-5.1); SODIUM LEVEL 142.0 MMOL/L (136-145); TRIGLYCERIDES LEVEL 116.0 MG/DL (<150)
[2024-09-19 11:28] LABS: ESTIMATED AVERAGE GLUCOSE 235.0 MG/DL (60-110)
== END ==
LOC: M PLALAB 08:29
PROVIDERS: ATTEND Student in an Organized Health Care Education/Training Program
DX: I10 Essential (primary) hypertension (principal); E11.51 Type 2 diabetes mellitus with diabetic peripheral angiopathy without gangrene; I25.10 Atherosclerotic heart disease of native coronary artery without angina pectoris; Z76.89 Persons encountering health services in other specified circumstances

== ENCOUNTER → 2024-12-04 | Outpatient (CLI) | payer MEDICARE ==
[2024-12-04 11:01] LABS: CALCIUM LEVEL 8.7 MG/DL (8.3-10.6); CARBON DIOXIDE LEVEL 29.0 MMOL/L (20-31); CHLORIDE LEVEL 103.0 MMOL/L (98-107); CREATININE FOR GFR 2.21 MG/DL (0.70-1.30); GLOMERULAR FILTRATION RATE 29.6 (>42); POTASSIUM SERUM 4.4 MMOL/L (3.5-5.1); SODIUM LEVEL 142.0 MMOL/L (136-145)
== END ==
LOC: M PLALAB 09:24
PROVIDERS: ATTEND Physician Assistant
DX: I50.42 Chronic combined systolic (congestive) and diastolic (congestive) heart failure (principal); I47.20 Ventricular tachycardia, unspecified; I48.0 Paroxysmal atrial fibrillation

== ENCOUNTER → 2025-01-16 | Outpatient (CLI) | payer MEDICARE ==
[2025-01-16 14:22] LABS: CHOLESTEROL LEVEL 122.0 MG/DL (<200); CHOLESTEROL RISK RATIO 3.33 (<5); LDL CHOLESTEROL 68.4 MG/DL (<100); NON-HDL-C 85.4 MG/DL; TRIGLYCERIDES LEVEL 85.0 MG/DL (<150)
[2025-01-16 14:31] LABS: ESTIMATED AVERAGE GLUCOSE 226.0 MG/DL (60-110)
== END ==
LOC: M PLALAB 09:38
PROVIDERS: ATTEND Student in an Organized Health Care Education/Training Program
DX: I25.10 Atherosclerotic heart disease of native coronary artery without angina pectoris (principal); E11.51 Type 2 diabetes mellitus with diabetic peripheral angiopathy without gangrene